=== PATIENT | female | born 1950 | race Caucasian/White ===

== ENCOUNTER 2016-08-06 14:21 | Emergency (ER) | payer MEDICARE, OTHER ==
[2016-08-06] MEDS ORDERED: KETOROLAC TROMETHAMINE 30 MG/ML VIAL IM ONE (14:43)
[2016-08-06] MEDS ORDERED: KETOROLAC TROMETHAMINE 30 MG/ML VIAL ONE (14:46)
--- OUTSIDE RECORDS SUMMARY | 2016-08-06 14:47 | XMS REPORT | Continuity of Care Document ---
:1950 Author Organization [facility] ([facility]) Address [address] [place] [address] Phone [phone] Care Team Providers Name Role Phone Moises Posey Primary Care Provider [phone] Source Comments This disclosure is being made pursuant to the Care Everywhere program, applicable federal and state laws, and may not contain all informaitonavailable regarding this patient.[facility] ([facility]) Active Allergies and Adverse Reactions Allergen Noted Date Severity Reactions Comments Latex, Natural Rubber Urticaria (Hives) Current Medications Prescription Sig. Disp. Refills Start Date End Date Status hydrochlorothiazide take 1 Tab by mouth Active (HYDRODIURIL) 25 mg daily. tablet clopidogrel (PLAVIX) 75 take 1 Tab by mouth Active mg tablet daily. simvastatin (ZOCOR) 80 take 1 Tab by mouth Active mg tablet every evening. citalopram (CELEXA) 20 take 1 Tab by mouth Active mg tablet daily. niacin 500 mg tablet take 1 Tab by mouth Active daily. Ramipril (ALTACE) 10 mg take 1 Tab by mouth Active Tab daily. metoPROLol (LOPRESSOR) take 1 Tab by mouth Active 100 mg tablet daily. nystatin (NYSTOP) powder apply 1 application 1 Bottle 0 04/17/2009 Active topically 4 times daily. Indications: Cutaneous Candidiasis HYDROCODONE take by mouth as Active BIT/ACETAMINOPHEN needed. (VICODIN PO) HYDROcodone-acetaminophe Take 1 Tab by mouth 5 Tab 0 01/28/2011 Active n 5-500 mg per tablet every 6 hours as needed. Indications: Pain fluticasone 50 use 2 Sprays into Active mcg/Actuation nasal both nostrils spray daily. ALPRAZolam 0.25 mg Take 0.25 mg by Active tablet mouth at bedtime. insulin nph (HumuLIN N) inject 35 Units Active 100 unit/mL injection subcutaneously at vial bedtime. insulin nph (HumuLIN N) inject 40 Units Active 100 unit/mL injection subcutaneously vial daily. gabapentin 300 mg Take 300 mg by Active capsule mouth 3 times daily. diphenhydrAMINE 25 mg Take 25 mg by mouth Active capsule at bedtime as needed. sennosides 8.6 mg tablet Take 2 Tabs by Active mouth at bedtime. multivitamin with Take 1 Tab by mouth Active minerals tablet daily. potassium chloride 10 Take 10 mEq by Active mEq XR tablet mouth 2 times daily. oxyCODONE-acetaminophen Take 1 Tab by mouth Active 5-325 mg per tablet every 6 hours as needed. Do Not exceed 4000 mg of acetaminophen per 24 hours. isrobmhyyg-nuhjunm-wegxe Take 1 Tab by mouth Active ine (BUTALBITAL every 8 hours as COMPOUND) 50-325-40 mg needed. Max of 6 per tablet tablet per day. Active Problems Problem Noted Date S/P TKR (total knee replacement) 02/09/2013 Knee pain, right 02/09/2013 Other disorder of menstruation and other abnormal bleeding from female 2006 genital tract Type II or unspecified type diabetes mellitus without mention of 12/17/2003 complication, not stated as uncontrolled Ingrowing nail 12/17/2003 Pain in joint, lower leg 07/29/2002 Other musculoskeletal symptoms referable to limbs(729.89) 07/08/2002 Benign neoplasm of bone and articular cartilage, site unspecified 06/21/2002 Effusion of joint, site unspecified 06/21/2002 Contusion of unspecified part of lower limb 06/21/2002 Other tenosynovitis of hand and wrist 05/20/2002 Social History Tobacco Use Types Packs/Day Years Used Date Never Smoker Alcohol Use Drinks/Week oz/Week Comments No Last Filed Vital Signs Vital Sign Reading Time Taken Blood Pressure 134/74 02/06/2013 1:36 PM CDT Pulse 80 02/06/2013 1:36 PM CDT Temperature 36.6 C (97.9 F) 02/06/2013 1:36 PM CDT Respiratory Rate 16 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 Height 1.617 m (5' 3.66") 02/06/2013 1:36 PM CDT Weight 105.461 kg (232 lb 8 oz) 02/06/2013 1:36 PM CDT Body Mass Index 40.33 02/06/2013 1:36 PM CDT Oxygen Saturation 95% 04/03/2009 11:30 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 Plan of Care Health Maintenance Due Date Last Done Comments HCV Screening 1950 Hepatitis B Vaccine (1 of 3 - Primary Series) 1950 Tdap Vaccine 1960 DIABETIC: Cholesterol 10/21/1967 Diabetic: Hdl 10/21/1967 DIABETIC: Microalbumin 10/21/1967 DIABETIC: Triglycerides 10/21/1967 Td Vaccine 10/21/1967 Mammogram 1989 Colonoscopy 1999 DIABETIC: Hemoglobin A1C 02/18/2005 08/19/2004 Diabetic: Ldl 08/19/2005 08/19/2004 Zoster Vaccine 2009 DIABETIC: Foot Exam 10/26/2010 DIABETIC: Retinal Eye Exam 10/26/2010 Osteoporosis Screening (DXA Bone Density) 2014 Pneumococcal Vaccine (1 of 2 - PCV13) 2014 Influenza Vaccine: Seasonal (#1) 12/14/2015 Results from Last 3 Months Not on file
--- NOTE | 2016-08-06 14:55 | ERNOTE ---
Lower Extremity HPI - Narrative Date of Service: 08/06/16 - General Lower Extremities Pain: foot: left Time Seen by Provider: 08/06/16 14:34 Source: patient Exam Limitations: no limitations - Immun/Allergies/Home Medications Immunizations: IMMUNIZATION HX Immunizations Up to Date Yes History of Influenza Vaccine Yes Hx Pneumococcal Vaccination Yes Allergies/Adverse Reactions: Allergies Allergy/AdvReac Type Severity Reaction Status Date / Time latex Allergy Mild Hives Verified 08/06/16 14:30 Home Medications: HOME MEDICATIONS Clopidogrel Bisulfate [Plavix] 75 mg PO DAILY 03/15/12 [Last Taken 09/17/13] Gabapentin 300 mg PO TID 03/15/12 [Last Taken 09/17/13] Hydrochlorothiazide 25 mg PO DAILY 03/15/12 [Last Taken 09/17/13] Metoprolol Tartrate 100 mg PO QPM 03/15/12 [Last Taken 09/16/13] Niacin (Inositol Niacinate) [Niacin 500 mg Capsule] 500 mg PO DAILY 03/15/12 [ Last Taken 09/17/13] Potassium Chloride [Klor-Con 10] 20 meq PO DAILY 03/15/12 [Last Taken 09/17/13] Ramipril 10 mg PO DAILY 03/15/12 [Last Taken 09/17/13] Simvastatin 80 mg PO HS 03/15/12 [Last Taken 09/16/13] Calcium Carbonate [Calcium] 1,000 mg PO DAILY 09/17/13 [Last Taken 09/17/13] Diphenhydramine HCl [Allergy Medicine] 25 mg PO HS 09/17/13 [Last Taken 09/17/13 ] Multivitamin [Multi Vitamin Daily] 1 tab PO DAILY 09/17/13 [Last Taken 09/17/13] Tolterodine Tartrate [Detrol LA] 2 mg PO DAILY 09/17/13 [Last Taken 09/17/13] Trazodone HCl 100 mg PO HS 09/17/13 [Last Taken 09/16/13] Acetaminophen [Tylenol] 650 mg PO Q4H PRN 06/03/14 [Last Taken Unknown] Blood Sugar Diagnostic, Drum [Accu-Chek Compact] 1 each MC TID 06/03/14 [Last Taken Unknown] Cetirizine HCl [Zyrtec] 10 mg PO DAILY 06/03/14 [Last Taken Unknown] Cyanocobalamin [Vitamin B-12] 1,000 mcg PO DAILY 06/03/14 [Last Taken Unknown] Insulin Aspart [Novolog Flexpen] 100 unit SQ AC 06/03/14 [Last Taken Unknown] Insulin Aspart [Novolog] 40 units SC QPM 06/03/14 [Last Taken Unknown] Insulin Aspart [Novolog] 45 units SC QAM 06/03/14 [Last Taken Unknown] Ranitidine HCl [Zantac] 150 mg PO BID 06/03/14 [Last Taken Unknown] Solifenacin Succinate [Vesicare] 10 mg PO DAILY 06/03/14 [Last Taken Unknown] Venlafaxine HCl [Effexor Xr] 150 mg PO DAILY 06/03/14 [Last Taken Unknown] metFORMIN HCL [Glucophage] 500 mg PO BIDWM 06/03/14 [Last Taken Unknown] rOPINIRole HCL [Requip] 0.5 mg PO HS 06/03/14 [Last Taken Unknown] Chlorhexidine Gluconate [Chlorhexidine Gluconate 0.12%] 15 ml MM BID 01/14/15 [ Last Taken Unknown] Cyclosporine [Restasis] 1 each OP BID 01/14/15 [Last Taken Unknown] Estrogens, Conjugated [Premarin Cream] 1 appl VG SUTH 01/14/15 [Last Taken Unknown] Sodium Fluoride [Prevident 5000] 100 ml DT BID 01/14/15 [Last Taken Unknown] - History of Present Illness Narrative: Pt. comes in with c/o L foot pain that she noticed upon awakening this morning. Pt. thought that it may be her arthritis so she walked around on it and then she noticed it was swelling, so she decided to be evaluated here. Pt. denies any injury or recent illness. Pt. denies any calf pain. Pt. denies any alleviating factors despite taking tylenol for pain. Pt. denies any SOB, CP, headache, numbness, or tingling. Review of Systems - Review of Systems Constitutional: Present: no symptoms reported. Absent: recent illness, fever, chills, weakness, fatigue, malaise EYE: Present: no symptoms reported ENT: Present: no symptoms reported Respiratory: Present: no symptoms reported. Absent: shortness of breath, cough , wheezing Cardiology: Present: edema - LLE. Absent: chest pain, palpitations Gastrointestinal/Abdominal: Present: no symptoms reported Genitourinary: Present: no symptoms reported Musculoskeletal: Present: joint pain - L volar heel. Absent: back pain Skin: Present: no symptoms reported. Absent: rash, change in color Neurological: Present: no symptoms reported. Absent: headache, dizziness/light- headedness, numbness, tingling All Other Systems: All systems neg except as marked - Patient's Past Medical History Patient History - Medical: Depression Patient History - Cardiac/Respiratory: Other Patient History - Cancer: No Hx of Cancer - Social History Smoking Status: Never smoker Have you smoked in the past 12 months: No - Immunizations Immunizations Up to Date: Yes Hx Pneumococcal Vaccination: Yes History of Influenza Vaccine: Yes Physical Exam - Physical Exam General Appearance: Present: wd/wn, alert, no apparent distress Eye Exam: Normal inspection: bilateral, PERRL: bilateral, EOMI: bilateral Ears, Nose, Throat: Present: normal ENT inspection, normal pharynx Neck: Present: normal inspection, nontender. Absent: lymphadenopathy (R), lymphadenopathy (L) Respiratory: Present: no respiratory distress, normal breath sounds, no accessory muscle use, chest nontender, lungs clear Cardiovascular/Chest: Present: regular rate, rhythm, no murmur, normal peripheral pulses Back Exam: Present: normal inspection, normal range of motion, no vertebral tenderness Extremity Exam: Present: normal range of motion, pedal edema - LLE, other - soft tissue tissue swelling and tenderness L volar heel. Absent: calf tenderness Neurological Exam: Present: alert, oriented, normal mood/affect, no motor/ sensory deficits Skin Exam: Present: normal color, warm/dry. Absent: pallor, skin rash ED Progress - Results and Orders Patient's Lab Results:: I have reviewed the patient's lab results. - Vital Signs Patient's Vital Signs:: I have reviewed the patient's vital signs. Vital Signs: Vital Signs 08/06/16 14:22 Temperature 36.9 C Pulse Rate 66 Respiratory 14 Rate Blood Pressure 161/79 O2 Sat by Pulse 98 Oximetry - X-Ray X-Ray #1 X-Ray: foot Interpretation: Interp. by me X-ray Comments: spurring noted no fracture - CT/Ultrasound CT/Ultrasound Narrative: US without evidence of DVT. - Progress/Reassessment Chief Complaint: Foot Injury/Pain Departure Clinical Impression: Heel spur Qualifiers: Laterality: left Qualified Code(s): M77.32 - Calcaneal spur, left foot - Departure Disposition: Home self-care Condition: Good Instructions: Heel Spur Additional Instructions: Please use tramadol and Voltaren gel for pain in heel and follow up with quality control scientist by calling to make appointment on Monday. Referrals: Moises Posey MD [Primary Care Provider] -
[2016-08-06 15:10] LABS: Hemoglobin 14.9 gm/dL (12.5-16.0); Mean Cell Volume 94.9 fl (78-100); Mean Corpuscular Hemoglobin 31.4 pg (27-31); Mean Corpuscular Hgb Conc 33.1 g/dl (32-36); Mean Platelet Volume 9.2 fl (6.0-9.5); Neutrophil # 7.8 K/mm3 (1.3-6.0); Neutrophil % 66.5 % (42-75.0); Platelet Count 171 K/mm3 (150-450); Red Blood Count 4.74 M/mm3 (4.2-5.4); Red Cell Distribution Width 12.2 % (11.5-14.0); White Blood Count 11.7 K/mm3 (4.0-10.5)
[2016-08-06 15:36] LABS: Albumin * 3.9 gm/dl (3.4-5.0); Anion Gap 15.3 mmol/L (6.8-13.8); BUN/Creatinine Ratio 18.3 (9.0-21.6); Bilirubin, Total 0.5 mg/dL (0.0-1.1); Ca. Corrected For Albumin 8.9 mg/dL (8.4-10.2); Calcium * 9.1 mg/dL (7.9-10.9); Carbon Dioxide 23.1 mmol/L (24-32.6); Potassium 4.4 mmol/L (3.4-4.6); Total Protein 7.8 gm/dL (6.2-8.2); Uric Acid 4.6 mg/dL (2.6-7.2)
[2016-08-06 17:04] VITALS: BP 173/77
== END 2016-08-06 17:14 | disposition home or self-care (01) ==
LOC: ER 14:21
DX: M77.32 Calcaneal spur, left foot (principal)

== ENCOUNTER 2019-02-27 14:31 | Inpatient (IN) ==
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
[2019-02-27 15:32] LABS: Hematocrit 42.9 % (37.0-47.0); Hemoglobin 14.5 gm/dL (12.5-16.0); Mean Corpuscular Hemoglobin 32.4 pg (27-31); Mean Corpuscular Hgb Conc 33.8 g/dl (32-36); Mean Platelet Volume 8.3 fl (8-12.5); Neutrophil # 13.3 K/mm3 (1.3-6.0); Neutrophil % 78.3 % (42-75.0); Platelet Count 285 K/mm3 (150-450); Red Blood Count 4.47 M/mm3 (4.2-5.4); Red Cell Distribution Width 12.5 % (11.5-14.0); White Blood Count 17.1 K/mm3 (4.0-10.5)
[2019-02-27 15:34] LABS: Urine Bilirubin 1 mg/dl (NEGATIVE); Urine Blood 25 /ul (NEGATIVE); Urine Ketone 15 mg/dL (NEGATIVE); Urine Protein Negative (NEGATIVE); Urine Urobilinogen Normal (NORMAL)
[2019-02-27 15:42] LABS: Urine Appearance Cloudy (CLEAR); Urine Color Yellow; Urine Nitrite Positive (NEGATIVE); Urine RBC TRACE /hpf (0-5)
[2019-02-27 15:43] LABS: Urine Bacteria 3+
[2019-02-27 15:47] LABS: Albumin * 3.4 gm/dl (3.4-5.0); Anion Gap 13.7 mmol/L (6.8-13.8); BUN/Creatinine Ratio 23.5 (9.0-21.6); Bilirubin, Total 0.4 mg/dL (0.0-1.1); Ca. Corrected For Albumin 9.4 mg/dL (8.4-10.2); Calcium * 9.2 mg/dL (7.9-10.9); Carbon Dioxide 24.8 mmol/L (24-32.6); Potassium 3.5 mmol/L (3.4-4.6); Total Protein 8.5 gm/dL (6.2-8.2)
[2019-02-27] MEDS ORDERED: cefTRIAXone SODIUM 1,000 MG/100 ML BAG IV ONE (16:27)
[2019-02-27] MEDS ORDERED: FLU VACC QS2019-20(6MOS UP)/PF 60 MCG/0.5 ML SYRINGE IM ONE (17:50)
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
[2019-02-27] MEDS: INSULIN LISPRO 100 UNITS/ML VIAL SC SCH (20:54)
[2019-02-27] MEDS ORDERED: DOCUSATE SODIUM 100 MG CAPSULE PO PRN (20:56)
[2019-02-27] MEDS ORDERED: BISMUTH SUBSALICYLATE PO PRN (20:56)
[2019-02-27] MEDS ORDERED: BISACODYL 10 MG SUPP.RECT RC PRN (20:56)
[2019-02-27] MEDS ORDERED: POLYETHYLENE GLYCOL 3350 119 GM BTL PO PRN (20:56)
[2019-02-27] MEDS ORDERED: CHLORHEXIDINE GLUCONATE MOUTHWASH MM SCH (21:00)
[2019-02-27] MEDS ORDERED: ESTRADIOL 42.5 APPL TUBE VG SCH (21:00)
[2019-02-27] MEDS ORDERED: TRAZODONE HCL PO SCH (22:00)
[2019-02-27] MEDS ORDERED: traZODone HCL 50 MG TABLET ONE (23:14)
[2019-02-27] MEDS: RAMIPRIL 2.5 MG CAPSULE PO SCH (23:18)
[2019-02-27] MEDS: METOPROLOL TARTRATE 25 MG TABLET PO SCH (23:19)
[2019-02-27] MEDS: GABAPENTIN 300 MG CAPSULE PO SCH (23:20)
[2019-02-27] MEDS: TOPIRAMATE 50 MG TABLET PO SCH (23:20)
[2019-02-28] MEDS ORDERED: POLYETHYLENE GLYCOL 3350 17 GM PACKET PO PRN (06:22)
[2019-02-28] MEDS: INSULIN LISPRO 100 UNITS/ML VIAL SC SCH ×4 (07:22→21:17)
[2019-02-28] MEDS: PREVIDENT dental SCH ×3 (07:30→21:24)
[2019-02-28] MEDS: rOPINIRole HCL 1 MG TABLET PO SCH ×3 (07:30→21:24)
[2019-02-28] MEDS: INSULIN NPH HUMAN ISOPHANE 100 UNITS/ML VIAL SC SCH ×2 (07:31→16:39)
[2019-02-28] MEDS: ALPRAZolam 0.5 MG TABLET PO PRN (08:22)
[2019-02-28] MEDS: MULTIVITAMIN/IRON/FOLIC ACID 1 TAB TABLET PO SCH (08:55)
[2019-02-28] MEDS: TOLTERODINE TARTRATE 2 MG CAPSULE PO SCH (08:55)
[2019-02-28] MEDS: RAMIPRIL 2.5 MG CAPSULE PO SCH ×2 (08:55→21:20)
[2019-02-28] MEDS: CALCIUM CARBONATE/VITAMIN D3 1 TAB TABLET PO SCH ×2 (08:55→21:22)
[2019-02-28] MEDS: CLOPIDOGREL BISULFATE 75 MG TABLET PO SCH (08:56)
[2019-02-28] MEDS: GABAPENTIN 300 MG CAPSULE PO SCH ×3 (08:56→16:32)
[2019-02-28] MEDS: METOPROLOL TARTRATE 25 MG TABLET PO SCH ×2 (08:56→21:23)
[2019-02-28] MEDS: TOPIRAMATE 50 MG TABLET PO SCH ×2 (08:56→21:24)
[2019-02-28] MEDS: LIDOCAINE 1 PATCH ADH..PATCH TP SCH (08:57)
[2019-02-28] MEDS ORDERED: ARIPiprazole 10 MG TABLET PO SCH (09:00)
[2019-02-28] MEDS ORDERED: amLODIPine BESYLATE 5 MG TABLET PO SCH (09:00)
[2019-02-28] MEDS: POTASSIUM CHLORIDE 10 MEQ in 0.5 NORMAL SALINE 1,000 ML IV SCH ×2 (09:47→16:31)
--- NOTE | 2019-02-28 09:57 | PN ---
Subjective - Date and Time Seen Date: 02/28/19 Time: 09:40 Subjective Narrative: patient continues to be weak, bedridden most of the time, refusing activity. she has h/o CVA with left spastic hemiparesis and recent greater trochanter avusion fracture. she is incontinent of her urine. she is complaining of N/dry heave and abdominal pain. Objective - Review of Systems Generalized/Overall Review: Reports: Weakness. Denies: Chills, Fever EENTM: Denies: Blurred Vision Respiratory: Denies: Cough, Shortness of Breath Cardiac: Denies: Chest Pain, Edema, Palpitations Abdominal: Reports: Nausea, Vomiting, Abdominal Pain Genitourinary Symptoms: Denies: Urgency, Frequency Musculoskeletal Complaints: Reports: Joint Pain, Back Pain Neurological: Reports: Anxiety, Depressed. Denies: Headache Misc: All systems neg except as marked - Vitals Vitals: Last Vital Signs Temp 37.5 C 02/28/19 07:56 Pulse 85 02/28/19 08:56 Resp 24 H 02/28/19 07:56 BP 149/88 02/28/19 08:56 Pulse Ox 97 02/28/19 07:56 - Abnormal Lab Findings Abnormal Lab Findings: Abnormal Lab Results 02/27/19 02/27/19 02/27/19 Range/Units 15:20 15:25 15:25 WBC 17.1 H (4.0-10.5) K/mm3 MCH 32.4 H (27-31) pg Immature Gran % (Auto) 0.50 H (0.001-0.429) % Immature Gran # (Auto) 0.09 H (0.000-0.0310) K/mm3 Neutrophils % 78.3 H (42-75.0) % Lymphocytes % 12.4 L (20-51) % Neutrophils # 13.3 H (1.3-6.0) K/mm3 Monocytes # 1.4 H (0.0-1.0) k/mm3 Sodium 144 H (132-142) mmol/L Plasma Sodium 144 H (130-142) mmol/L Chloride 109 H (97-106) mmol/L BUN 27 H D (3-23) mg/dL Est GFR (Non-Af Amer) 50 L D (60-130) mL/min BUN/Creatinine Ratio 23.5 H (9.0-21.6) AST 80 H (0-48) U/L ALT 98 H (19-67) U/L Total Protein 8.5 H (6.2-8.2) gm/dL Urine Blood 25 H (NEGATIVE) /ul Urine Nitrate Positive H (NEGATIVE) Urine Bilirubin 1 H (NEGATIVE) mg/dl Ur Leukocyte Esterase 100 H (NEGATIVE) /ul Urine WBC 10-25 H (0-5) /hpf Urine Bacteria 3+ H (NONE) - Exam Constitutional: Present: Alert, Oriented x3, Looks Older than stated age ENT Exam: Present: hearing grossly normal Neck: Present: full range of motion. Absent: lymphadenopathy (R), lymphadenopathy (L) Respiratory: Present: decreased breath sounds, No rales, No wheezing Cardiovascular/Chest: Present: regular rate, rhythm, no JVD, no murmur Abdomen: Present: Normal bowel sounds, soft, nondistended, tender - LLQ Extremity: Present: no calf tenderness, pedal edema Neurologic: Present: packing clerk II-XII nml as tested, facial droop, motor weakness - left hemiparesis Assessment/Plan Plan Narrative: Yuliana has been having progressive decline in her general condition as she is starting to have failure to thrive. she used to be more independent and ambulated with her walker before her fall and greater trochanteric fracure despite her left spastic hemiparesis from her CVA in the past. she has developed pressure ulcer and is icontinent of her urine. she has UTI with E. Coli and is needing IV antibiotics as she does not take her oral antibiotics , pocketing it in her mouth as per dependency case manager. i don't think she will be able to return to her [facility] prison home as it is . will get an AXR for her n/abd pain. lastg BM was 2- 3 days ago. will also likely get a urology consult in am for her urinary incontinence as her interstim could have lost its battery power got dislodged when she had her fall. - Problems/Diagnosis (1) UTI (urinary tract infection) Problem: Acute (2) Failure of outpatient treatment Problem: Acute (3) Weakness Problem: Acute (4) Trochanteric avulsion fracture of femur Problem: Acute Qualifiers: (5) CVA (cerebral vascular accident) Problem: Chronic (6) Hypercholesteremia Problem: Chronic (7) Urinary incontinence Problem: Acute Qualifiers: (8) Major depression Problem: Chronic Qualifiers:
[2019-02-28] MEDS: traMADol HCL 50 MG TABLET PO PRN ×2 (11:34→17:53)
[2019-02-28] MEDS: SIMVASTATIN 20 MG TABLET PO SCH (16:32)
[2019-02-28] MEDS: traZODone HCL 150 MG, traZODone HCL 50 MG PO SCH ×2 (21:23)
[2019-02-28] MEDS ORDERED: CYCLOBENZAPRINE HCL 10 MG TABLET PO PRN (22:00)
[2019-02-28] MEDS: ENOXAPARIN SODIUM 40 MG/0.4 ML SYRG SC SCH (23:02)
[2019-03-01] MEDS: POTASSIUM CHLORIDE 10 MEQ in 0.5 NORMAL SALINE 1,000 ML IV SCH ×2 (01:05→09:49)
[2019-03-01 06:03] LABS: Hematocrit 38.2 % (37.0-47.0); Hemoglobin 12.9 gm/dL (12.5-16.0); Mean Cell Volume 95.5 fl (78-100); Mean Corpuscular Hemoglobin 32.3 pg (27-31); Mean Corpuscular Hgb Conc 33.8 g/dl (32-36); Mean Platelet Volume 8.5 fl (8-12.5); Neutrophil # 11.6 K/mm3 (1.3-6.0); Platelet Count 215 K/mm3 (150-450); Red Cell Distribution Width 12.2 % (11.5-14.0); White Blood Count 14.7 K/mm3 (4.0-10.5)
[2019-03-01 06:08] LABS: Anion Gap 13.3 mmol/L (6.8-13.8); BUN/Creatinine Ratio 26.2 (9.0-21.6); Calcium * 8.4 mg/dL (7.9-10.9); Carbon Dioxide 20.5 mmol/L (24-32.6); Estimated Creat Clear 54.6; Potassium 3.8 mmol/L (3.4-4.6)
[2019-03-01] MEDS: INSULIN LISPRO 100 UNITS/ML VIAL SC SCH ×4 (07:08→20:20)
[2019-03-01] MEDS: INSULIN NPH HUMAN ISOPHANE 100 UNITS/ML VIAL SC SCH ×2 (07:09→17:13)
[2019-03-01] MEDS ORDERED: ARIPiprazole 10 MG TABLET PO SCH (09:00)
--- NOTE | 2019-03-01 09:28 | PN ---
Subjective - Date and Time Seen Date: 03/01/19 Time: 09:19 Subjective Narrative: patient had BM with enema. No more N/dry heaves and abdominal pain. BP has elevated in the 150-s-180's. still needing max assist with transfers. Objective - Review of Systems Generalized/Overall Review: Reports: Weakness. Denies: Chills, Fever EENTM: Denies: Blurred Vision Respiratory: Denies: Cough, Shortness of Breath, Orthopnea Cardiac: Denies: Chest Pain, Edema, Palpitations Abdominal: Denies: Nausea, Vomiting, Abdominal Pain Genitourinary Symptoms: Reports: Incontinent. Denies: Urgency, Frequency Musculoskeletal Complaints: Reports: Joint Pain, Back Pain Neurological: Denies: Headache Skin: Denies: Lesions, Rash Endocrine: Denies: Intolerance to Cold, Intolerance to Heat Misc: All systems neg except as marked - Vitals Vitals: Last Vital Signs Temp 36.8 C 03/01/19 08:56 Pulse 80 03/01/19 08:56 Resp 20 03/01/19 08:56 BP 176/81 H 03/01/19 08:56 Pulse Ox 95 03/01/19 08:56 - Abnormal Lab Findings Abnormal Lab Findings: Abnormal Lab Results 02/28/19 03/01/19 03/01/19 Range/Units 14:50 05:59 05:59 WBC 14.7 H (4.0-10.5) K/mm3 RBC 4.00 L (4.2-5.4) M/mm3 MCH 32.3 H (27-31) pg Immature Gran # (Auto) 0.05 H (0.000-0.0310) K/mm3 Neutrophils % 79.0 H (42-75.0) % Lymphocytes % 14.0 L (20-51) % Neutrophils # 11.6 H (1.3-6.0) K/mm3 pCO2 23.9 L (32.0-45.0) mmHg HCO3 17.2 L (21.0-28.0) mmol/L Total CO2 18.0 L (19.0-24.0) mmol/L Base Excess -4.4 L (-2.0-3.0) mmol/L ABG pH 7.48 H (7.35-7.45) Chloride 107 H (97-106) mmol/L Carbon Dioxide 20.5 L (24-32.6) mmol/L BUN/Creatinine Ratio 26.2 H (9.0-21.6) Random Glucose 192 H D (70-110) mg/dL - Exam Constitutional: Present: Alert, Oriented x3, Cooperative ENT Exam: Present: hearing grossly normal Neck: Present: supple. Absent: lymphadenopathy (R), lymphadenopathy (L) Respiratory: Present: decreased breath sounds, No rales, No wheezing Cardiovascular/Chest: Present: regular rate, rhythm, no JVD, no murmur Abdomen: Present: Normal bowel sounds, soft, nontender, nondistended Extremity: Present: no calf tenderness, pedal edema Assessment/Plan Plan Narrative: Yuliana continues to need maximal assist for transfers. She says pain is better controlled. She had a bowel movement yesterday and her nausea, dry heaves and abdominal pain resolved. She remains incontinent of her urine. We will try to get consult or talk to urology today for recommendation on her InterStim. Her white blood cell count went down from 17 to 14 with IV Rocephin. She grew E. coli last week. Her repeat urine culture on this admission is still showing gram-negative bacilli reflecting that she failed outpatient treatment first due to antibiotic that was resistant and then with the correct antibiotic the patient was not compliant pocketing her antibiotics in her mouth as per shelter case manager of [facility]. She also is choking on her food and we will change it to mechanical soft diet. PT/ OT has been consulted. Her ABG showed respiratory alkalosis likely due to anxiety as her tachypnea got better with a sedative as well as pain medicine. We will increase her amlodipine to 10 mg p.o. daily today continue with her ramipril 10 mg twice daily. Will need NH placement. - Problems/Diagnosis (1) UTI (urinary tract infection) Problem: Acute (2) Failure of outpatient treatment Problem: Acute (3) Weakness Problem: Acute (4) Trochanteric avulsion fracture of femur Problem: Acute Qualifiers: (5) CVA (cerebral vascular accident) Problem: Chronic (6) Hypercholesteremia Problem: Chronic (7) Urinary incontinence Problem: Acute Qualifiers: (8) Major depression Problem: Chronic Qualifiers:
[2019-03-01] MEDS: ARIPiprazole 5 MG TABLET PO SCH (10:05)
[2019-03-01] MEDS: RAMIPRIL 2.5 MG CAPSULE PO SCH ×2 (10:05→20:10)
[2019-03-01] MEDS: CALCIUM CARBONATE/VITAMIN D3 1 TAB TABLET PO SCH ×2 (10:07→20:10)
[2019-03-01] MEDS: MULTIVITAMIN/IRON/FOLIC ACID 1 TAB TABLET PO SCH (10:07)
[2019-03-01] MEDS: TOLTERODINE TARTRATE 2 MG CAPSULE PO SCH (10:07)
[2019-03-01] MEDS: LIDOCAINE 1 PATCH ADH..PATCH TP SCH (10:08)
[2019-03-01] MEDS: METOPROLOL TARTRATE 25 MG TABLET PO SCH ×2 (10:09→20:14)
[2019-03-01] MEDS: GABAPENTIN 300 MG CAPSULE PO SCH ×3 (10:10→17:04)
[2019-03-01] MEDS: amLODIPine BESYLATE 10 MG TABLET PO SCH (10:11)
[2019-03-01] MEDS: CLOPIDOGREL BISULFATE 75 MG TABLET PO SCH (10:11)
[2019-03-01] MEDS: rOPINIRole HCL 1 MG TABLET PO SCH ×2 (10:11→20:12)
[2019-03-01] MEDS: PREVIDENT dental SCH ×2 (10:11→20:15)
[2019-03-01] MEDS: TOPIRAMATE 50 MG TABLET PO SCH ×2 (10:12→20:16)
[2019-03-01] MEDS: FLUTICASONE PROPIONATE 120 SPRAY INHALER NS SCH (11:45)
[2019-03-01] MEDS: ACETAMINOPHEN 325 MG TABLET PO PRN (15:23)
[2019-03-01] MEDS: SIMVASTATIN 20 MG TABLET PO SCH (17:04)
[2019-03-01] MEDS: traZODone HCL 150 MG, traZODone HCL 50 MG PO SCH ×2 (20:13)
[2019-03-01] MEDS: ENOXAPARIN SODIUM 40 MG/0.4 ML SYRG SC SCH (20:15)
[2019-03-02 06:20] LABS: Hematocrit 39.8 % (37.0-47.0); Hemoglobin 13.6 gm/dL (12.5-16.0); Mean Cell Volume 94.8 fl (78-100); Mean Corpuscular Hemoglobin 32.4 pg (27-31); Mean Corpuscular Hgb Conc 34.2 g/dl (32-36); Mean Platelet Volume 8.8 fl (8-12.5); Neutrophil # 9.1 K/mm3 (1.3-6.0); Neutrophil % 79.4 % (42-75.0); Platelet Count 230 K/mm3 (150-450); Red Cell Distribution Width 12.1 % (11.5-14.0); White Blood Count 11.5 K/mm3 (4.0-10.5)
[2019-03-02 06:45] LABS: Albumin * 2.9 gm/dl (3.4-5.0); Anion Gap 15.4 mmol/L (6.8-13.8); BUN/Creatinine Ratio 20.8 (9.0-21.6); Bilirubin, Total 0.5 mg/dL (0.0-1.1); Ca. Corrected For Albumin 9.2 mg/dL (8.4-10.2); Calcium * 8.6 mg/dL (7.9-10.9); Carbon Dioxide 21.2 mmol/L (24-32.6); Potassium 3.6 mmol/L (3.4-4.6); Total Protein 7.3 gm/dL (6.2-8.2)
[2019-03-02] MEDS: ACETAMINOPHEN 325 MG TABLET PO PRN (06:48)
[2019-03-02] MEDS: INSULIN NPH HUMAN ISOPHANE 100 UNITS/ML VIAL SC SCH ×2 (07:05→16:28)
[2019-03-02] MEDS: INSULIN LISPRO 100 UNITS/ML VIAL SC SCH ×4 (07:05→20:58)
[2019-03-02] MEDS: TOPIRAMATE 50 MG TABLET PO SCH ×2 (08:57→20:54)
[2019-03-02] MEDS: FLUTICASONE PROPIONATE 120 SPRAY INHALER NS SCH (08:57)
[2019-03-02] MEDS: amLODIPine BESYLATE 10 MG TABLET PO SCH (08:57)
[2019-03-02] MEDS: MULTIVITAMIN/IRON/FOLIC ACID 1 TAB TABLET PO SCH (08:57)
[2019-03-02] MEDS: LIDOCAINE 1 PATCH ADH..PATCH TP SCH (08:57)
[2019-03-02] MEDS: GABAPENTIN 300 MG CAPSULE PO SCH ×3 (08:57→16:17)
[2019-03-02] MEDS: CLOPIDOGREL BISULFATE 75 MG TABLET PO SCH (08:58)
[2019-03-02] MEDS: TOLTERODINE TARTRATE 2 MG CAPSULE PO SCH (08:58)
[2019-03-02] MEDS: CALCIUM CARBONATE/VITAMIN D3 1 TAB TABLET PO SCH ×2 (08:58→20:56)
[2019-03-02] MEDS: rOPINIRole HCL 1 MG TABLET PO SCH ×2 (08:58→20:53)
[2019-03-02] MEDS: PREVIDENT dental SCH ×2 (08:59→20:56)
[2019-03-02] MEDS: RAMIPRIL 2.5 MG CAPSULE PO SCH ×2 (08:59→20:54)
[2019-03-02] MEDS: METOPROLOL TARTRATE 25 MG TABLET PO SCH ×2 (08:59→20:54)
[2019-03-02] MEDS: ARIPiprazole 5 MG TABLET PO SCH (09:07)
[2019-03-02] MEDS: HYDROCHLOROTHIAZIDE 25 MG TABLET PO SCH (11:43)
--- NOTE | 2019-03-02 15:55 | PN ---
Subjective - Date and Time Seen Date: 03/02/19 Time: 10:33 Subjective Narrative: She denies urinary frequency or pain with urination. She is alert and oriented x1 to person only. Objective - Review of Systems Generalized/Overall Review: Denies: Fever Respiratory: Denies: Shortness of Breath Cardiac: Denies: Chest Pain Abdominal: Denies: Abdominal Pain Genitourinary Symptoms: Denies: Frequency, Dysuria Misc: All systems neg except as marked - Vitals Vitals: Last Vital Signs Temp 37.3 C 03/02/19 15:16 Pulse 90 03/02/19 15:16 Resp 18 03/02/19 15:16 BP 175/91 H 03/02/19 15:16 Pulse Ox 97 03/02/19 15:16 - Abnormal Lab Findings Abnormal Lab Findings: Abnormal Lab Results 03/02/19 03/02/19 Range/Units 05:50 05:50 WBC 11.5 H D (4.0-10.5) K/mm3 MCH 32.4 H (27-31) pg Immature Gran % (Auto) 0.50 H (0.001-0.429) % Immature Gran # (Auto) 0.06 H (0.000-0.0310) K/mm3 Neutrophils % 79.4 H (42-75.0) % Lymphocytes % 13.0 L (20-51) % Neutrophils # 9.1 H (1.3-6.0) K/mm3 Carbon Dioxide 21.2 L (24-32.6) mmol/L Anion Gap 15.4 H (6.8-13.8) mmol/L Random Glucose 228 H (70-110) mg/dL AST 92 H (0-48) U/L ALT 121 H (19-67) U/L Albumin 2.9 L (3.4-5.0) gm/dl - Exam Constitutional: Present: Alert, Cooperative, Well developed, Well nourished, No distress, Elderly. Absent: Oriented x3 ENT Exam: Present: hearing grossly normal Neck: Present: non-tender, supple, trachea midline. Absent: lymphadenopathy (R), lymphadenopathy (L) Respiratory: Present: lungs clear, normal breath sounds, no respiratory distress, no accessory muscle use, No wheezing. Absent: crackles, rhonchi Cardiovascular/Chest: Present: normal peripheral pulses, regular rate, rhythm, no edema, no murmur Abdomen: Present: Normal bowel sounds, soft, nontender, nondistended Extremity: Present: no pedal edema Skin Exam: Present: normal color, warm/dry Neurologic: Present: alert, normal mood/affect Appearance: Present: appropriate appearance, appropriate insight Eye contact: Present: cooperative Thoughts: Present: normal mood /affect Assessment/Plan Plan Narrative: 68-year-old female with a past medical history of hypertension, hypercholesterolemia, insomnia, migraines, seizure disorder, stroke with left hemiparesis, VTE, depression, diabetes mellitus type 2, GERD presents with progressively worsening failure to thrive. On presentation prior to admission she had been treated for a urinary tract infection with Macrobid. On presentation to the ER her urine analysis was positive. UA is currently growing E. coli greater than 100,000 colony-forming units that is sensitive to ceftriaxone. Plan #1 continue with ceftriaxone day 4 #2 she is not able to ambulate and is a Hernandez lift. She will need to be discharged to a detention facility rather than back to [facility]. #3 continue home medications for chronic comorbidities. For uncontrolled hypertension, I started hydrochlorothiazide today. Amlodipine and ramipril. She has spaced to go up on her beta-merline but I will hold off for now. Start hydralazine 10 mg 4 times daily. - Problems/Diagnosis (1) Hypertension Problem: Acute Qualifiers: Hypertension type: essential hypertension Qualified Code(s): I10 - Essential (primary) hypertension (2) Failure of outpatient treatment Problem: Acute (3) Weakness Problem: Acute (4) Trochanteric avulsion fracture of femur Problem: Acute Qualifiers: (5) UTI (urinary tract infection), bacterial Problem: Acute (6) Diabetes mellitus Problem: Chronic Qualifiers: Diabetes mellitus type: type 2 Diabetes mellitus shelter insulin use: without termite treater helper use Diabetes mellitus complication status: without complication Qualified Code(s): E11.9 - Type 2 diabetes mellitus without co mplications (7) CVA (cerebral vascular accident) Problem: Chronic (8) Hypercholesteremia Problem: Chronic (9) 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
[2019-03-02] MEDS: hydrALAZINE HCL 10 MG TABLET PO SCH ×2 (16:16→21:02)
[2019-03-02] MEDS: SIMVASTATIN 20 MG TABLET PO SCH (16:18)
[2019-03-02] MEDS: ENOXAPARIN SODIUM 40 MG/0.4 ML SYRG SC SCH (20:54)
[2019-03-02] MEDS: traZODone HCL 150 MG, traZODone HCL 50 MG PO SCH ×2 (20:55)
[2019-03-03] MEDS: hydrALAZINE HCL 10 MG TABLET PO SCH ×4 (03:28→23:02)
[2019-03-03] MEDS: INSULIN LISPRO 100 UNITS/ML VIAL SC SCH ×4 (07:13→21:25)
[2019-03-03] MEDS: INSULIN NPH HUMAN ISOPHANE 100 UNITS/ML VIAL SC SCH ×2 (07:14→17:02)
[2019-03-03] MEDS: CALCIUM CARBONATE/VITAMIN D3 1 TAB TABLET PO SCH ×2 (09:41→21:26)
[2019-03-03] MEDS: METOPROLOL TARTRATE 25 MG TABLET PO SCH ×2 (09:41→21:27)
[2019-03-03] MEDS: FLUTICASONE PROPIONATE 120 SPRAY INHALER NS SCH (09:41)
[2019-03-03] MEDS: TOLTERODINE TARTRATE 2 MG CAPSULE PO SCH (09:41)
[2019-03-03] MEDS: RAMIPRIL 2.5 MG CAPSULE PO SCH ×2 (09:41→21:26)
[2019-03-03] MEDS: amLODIPine BESYLATE 10 MG TABLET PO SCH (09:41)
[2019-03-03] MEDS: rOPINIRole HCL 1 MG TABLET PO SCH ×2 (09:41→21:27)
[2019-03-03] MEDS: MULTIVITAMIN/IRON/FOLIC ACID 1 TAB TABLET PO SCH (09:42)
[2019-03-03] MEDS: TOPIRAMATE 50 MG TABLET PO SCH ×2 (09:42→21:28)
[2019-03-03] MEDS: CLOPIDOGREL BISULFATE 75 MG TABLET PO SCH (09:43)
[2019-03-03] MEDS: GABAPENTIN 300 MG CAPSULE PO SCH ×3 (09:43→16:56)
[2019-03-03] MEDS: ARIPiprazole 5 MG TABLET PO SCH (09:43)
[2019-03-03] MEDS: PREVIDENT dental SCH ×2 (09:44→21:29)
[2019-03-03] MEDS: LIDOCAINE 1 PATCH ADH..PATCH TP SCH (09:44)
[2019-03-03] MEDS: HYDROCHLOROTHIAZIDE 25 MG TABLET PO SCH (11:40)
[2019-03-03] MEDS: ALPRAZolam 0.5 MG TABLET PO PRN (11:40)
--- NOTE | 2019-03-03 12:21 | PN ---
Subjective - Date and Time Seen Date: 03/03/19 Time: 10:47 Subjective Narrative: She has no complaints today. Denies urinary frequency or pain with urination. Objective - Review of Systems Generalized/Overall Review: Denies: Fever Respiratory: Denies: Shortness of Breath Cardiac: Denies: Chest Pain Abdominal: Denies: Abdominal Pain Misc: All systems neg except as marked - Vitals Vitals: Last Vital Signs Temp 36.9 C 03/03/19 10:59 Pulse 75 03/03/19 10:59 Resp 18 03/03/19 10:59 BP 150/72 H 03/03/19 10:59 Pulse Ox 96 03/03/19 10:59 - Exam Constitutional: Present: Alert, Cooperative, Well developed, Well nourished, No distress, Middle aged ENT Exam: Present: hearing grossly normal Neck: Present: non-tender, supple. Absent: lymphadenopathy (R), lymphadenopathy (L) Respiratory: Present: lungs clear, no respiratory distress, no accessory muscle use, No wheezing. Absent: crackles, rhonchi Cardiovascular/Chest: Present: normal peripheral pulses, regular rate, rhythm, no edema, no murmur Abdomen: Present: Normal bowel sounds, soft, nontender Extremity: Present: no pedal edema Skin Exam: Present: normal color, warm/dry Neurologic: Present: alert, normal mood/affect Appearance: Present: appropriate appearance, impaired insight Eye contact: Present: cooperative Thoughts: Present: normal mood /affect Assessment/Plan Plan Narrative: 68-year-old female with a past medical history of hypertension, hypercholesterolemia, insomnia, migraines, seizure disorder, stroke with left hemiparesis, VTE, depression, diabetes mellitus type 2, GERD presents with progressively worsening failure to thrive. On presentation prior to admission she had been treated for a urinary tract infection with Macrobid. On presentation to the ER her urine analysis was positive. UA is currently growing E. coli greater than 100,000 colony-forming units that is sensitive to ceftria xone. Plan #1 continue with ceftriaxone day 5 #2 she is not able to ambulate and is a Hernandez lift. She will need to be discharged to a halfway facility rather than back to [facility]. #3 continue home medications for chronic comorbidities. #4 for uncontrolled hypertension, I started hydrochlorothiazide 25 milligrams daily, and hydrochlorothiazide 10 mg 4 times a day yesterday with good response. Systolic pressures have dropped from the 170s to the 150. Continue with amlodipine, ramipril, hydrochlorothiazide and hydralazine. - Problems/Diagnosis (1) Hypertension Problem: Acute Qualifiers: Hypertension type: essential hypertension Qualified Code(s): I10 - Regina gtzl (primary) hypertension (2) Failure of outpatient treatment Problem: Acute (3) Weakness Problem: Acute (4) Trochanteric avulsion fracture of femur Problem: Acute Qualifiers: (5) UTI (urinary tract infection), bacterial Problem: Acute (6) Diabetes mellitus Problem: Chronic Qualifiers: Diabetes mellitus type: type 2 Diabetes mellitus emt intermediate insulin use: without emt intermediate use Diabetes mellitus complication status: without complication Qualified Code(s): E11.9 - Type 2 diabetes mellitus without complications (7) CVA (cerebral vascular accident) Problem: Chronic (8) Hypercholesteremia Problem: Chronic (9) 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
[2019-03-03] MEDS: SIMVASTATIN 20 MG TABLET PO SCH (16:57)
[2019-03-03] MEDS: ENOXAPARIN SODIUM 40 MG/0.4 ML SYRG SC SCH (21:25)
[2019-03-03] MEDS: traZODone HCL 150 MG, traZODone HCL 50 MG PO SCH ×2 (21:28)
[2019-03-04] MEDS: hydrALAZINE HCL 10 MG TABLET PO SCH ×4 (03:32→22:04)
[2019-03-04 05:42] LABS: Hematocrit 39.4 % (37.0-47.0); Hemoglobin 13.6 gm/dL (12.5-16.0); Mean Cell Volume 92.9 fl (78-100); Mean Corpuscular Hemoglobin 32.1 pg (27-31); Mean Corpuscular Hgb Conc 34.5 g/dl (32-36); Mean Platelet Volume 8.9 fl (8-12.5); Neutrophil # 8.7 K/mm3 (1.3-6.0); Neutrophil % 77.7 % (42-75.0); Platelet Count 248 K/mm3 (150-450); Red Blood Count 4.24 M/mm3 (4.2-5.4); Red Cell Distribution Width 12.3 % (11.5-14.0); White Blood Count 11.1 K/mm3 (4.0-10.5)
[2019-03-04 05:59] LABS: Albumin * 2.7 gm/dl (3.4-5.0); Bilirubin, Total 0.4 mg/dL (0.0-1.1); Ca. Corrected For Albumin 9.5 mg/dL (8.4-10.2); Calcium * 8.8 mg/dL (7.9-10.9); Carbon Dioxide 23.3 mmol/L (24-32.6); Potassium 3.3 mmol/L (3.4-4.6); Total Protein 6.9 gm/dL (6.2-8.2)
[2019-03-04] MEDS: INSULIN LISPRO 100 UNITS/ML VIAL SC SCH ×4 (07:33→22:07)
[2019-03-04] MEDS: INSULIN NPH HUMAN ISOPHANE 100 UNITS/ML VIAL SC SCH ×2 (07:33→17:11)
--- NOTE | 2019-03-04 08:25 | PN ---
Power Note - Interim Date: 03/04/19 Time: 08:20 Narrative: 03/04/19 08:22 Patient says her hip pain is 0 when she is sitting in the recliner, when she puts weight on it it goes to 5/10. discussed with the nurse of Dr. Beckwith last Monday who was in the room doing a procedure- they have the Interstim agent interrogate the bladder pacer. No immediate intervention at this time until her UTI is resolved. Awaiting NH placement.
[2019-03-04] MEDS: ARIPiprazole 5 MG TABLET PO SCH (08:37)
[2019-03-04] MEDS: RAMIPRIL 2.5 MG CAPSULE PO SCH ×2 (08:38→21:58)
[2019-03-04] MEDS: CALCIUM CARBONATE/VITAMIN D3 1 TAB TABLET PO SCH ×2 (08:38→21:59)
[2019-03-04] MEDS: TOLTERODINE TARTRATE 2 MG CAPSULE PO SCH (08:38)
[2019-03-04] MEDS: GABAPENTIN 300 MG CAPSULE PO SCH ×3 (08:39→17:10)
[2019-03-04] MEDS: METOPROLOL TARTRATE 25 MG TABLET PO SCH ×2 (08:39→22:02)
[2019-03-04] MEDS: FLUTICASONE PROPIONATE 120 SPRAY INHALER NS SCH (08:39)
[2019-03-04] MEDS: LIDOCAINE 1 PATCH ADH..PATCH TP SCH (08:39)
[2019-03-04] MEDS: amLODIPine BESYLATE 10 MG TABLET PO SCH (08:39)
[2019-03-04] MEDS: CLOPIDOGREL BISULFATE 75 MG TABLET PO SCH (08:40)
[2019-03-04] MEDS: TOPIRAMATE 50 MG TABLET PO SCH ×2 (08:40→22:04)
[2019-03-04] MEDS: PREVIDENT dental SCH ×2 (08:40→22:03)
[2019-03-04] MEDS: rOPINIRole HCL 1 MG TABLET PO SCH ×2 (08:40→22:03)
[2019-03-04] MEDS: MULTIVIT-MIN/FA/LYCOPEN/LUTEIN 1 TAB TABLET PO SCH (08:49)
[2019-03-04] MEDS ORDERED: POTASSIUM CHLORIDE 10 MEQ TABLET.SA PO ONE (10:07)
[2019-03-04] MEDS: HYDROCHLOROTHIAZIDE 25 MG TABLET PO SCH (10:17)
[2019-03-04] MEDS: SIMVASTATIN 20 MG TABLET PO SCH (17:10)
--- NOTE | 2019-03-04 19:44 | PN ---
Subjective - Date and Time Seen Date: 03/04/19 Time: 19:39 Subjective Narrative: Yuliana says her hip pain is 0 when she is sitting in the recliner, when she puts weight on it it goes to 5/10. discussed with the nurse of Dr. Beckwith last Monday who was in the room doing a procedure- they have the Interstim agent interrogate the bladder pacer. No immediate intervention at this time until her UTI is resolved. Awaiting NH placement. Objective - Review of Systems Generalized/Overall Review: Reports: Weakness. Denies: Chills, Fever EENTM: Denies: Blurred Vision Respiratory: Denies: Cough, Shortness of Breath, Orthopnea Cardiac: Denies: Chest Pain, Edema, Palpitations Abdominal: Denies: Nausea, Vomiting, Abdominal Pain Genitourinary Symptoms: Denies: Urgency, Frequency Musculoskeletal Complaints: Reports: Joint Pain, Back Pain Neurological: Reports: Anxiety. Denies: Headache Skin: Denies: Lesions, Rash Endocrine: Denies: Intolerance to Cold, Intolerance to Heat Misc: All systems neg except as marked - Vitals Vitals: Last Vital Signs Temp 37.1 C 03/04/19 19:16 Pulse 101 H 03/04/19 19:16 Resp 24 H 03/04/19 19:16 BP 153/92 H 03/04/19 19:16 Pulse Ox 93 03/04/19 19:16 - Abnormal Lab Findings Abnormal Lab Findings: Abnormal Lab Results 03/04/19 03/04/19 Range/Units 05:15 05:15 WBC 11.1 H (4.0-10.5) K/mm3 MCH 32.1 H (27-31) pg Immature Gran # (Auto) 0.05 H (0.000-0.0310) K/mm3 Neutrophils % 77.7 H (42-75.0) % Lymphocytes % 14.3 L (20-51) % Neutrophils # 8.7 H (1.3-6.0) K/mm3 Potassium 3.3 L (3.4-4.6) mmol/L Carbon Dioxide 23.3 L (24-32.6) mmol/L Anion Gap 14.0 H (6.8-13.8) mmol/L Est GFR (Non-Af Amer) 58 L D (60-130) mL/min Random Glucose 343 H D (70-110) mg/dL ALT 89 H (19-67) U/L Albumin 2.7 L (3.4-5.0) gm/dl - Exam Constitutional: Present: Alert, Oriented x3, Cooperative ENT Exam: Present: hearing grossly normal Neck: Present: supple. Absent: lymphadenopathy (R), lymphadenopathy (L) Respiratory: Present: decreased breath sounds, No rales, No wheezing Cardiovascular/Chest: Present: regular rate, rhythm, no JVD, no murmur Abdomen: Present: Normal bowel sounds, soft, nontender, nondistended Extremity: Present: no calf tenderness, pedal edema, other - left spastic hemiparesis Assessment/Plan Plan Narrative: We will continue with current medcations and present management. She was started on HCTZ and Hydralazine for her BP over the weekend. Will give her Klor Con today. Her WBC is down to 11. Awaiting NH placement. - Problems/Diagnosis (1) UTI (urinary tract infection) Problem: Acute Narrative: E. coli (2) Failure of outpatient treatment Problem: Acute (3) Weakness Problem: Acute (4) Trochanteric avulsion fracture of femur Problem: Acute Qualifiers: (5) CVA (cerebral vascular accident) Problem: Chronic (6) Hypercholesteremia Problem: Chronic (7) Urinary incontinence Problem: Acute Qualifiers: (8) Major depression Problem: Chronic Qualifiers:
[2019-03-04] MEDS: traZODone HCL 150 MG, traZODone HCL 50 MG PO SCH ×2 (22:00)
[2019-03-04] MEDS: ENOXAPARIN SODIUM 40 MG/0.4 ML SYRG SC SCH (22:02)
[2019-03-05] MEDS: hydrALAZINE HCL 10 MG TABLET PO SCH ×2 (04:10→08:59)
[2019-03-05] MEDS: ACETAMINOPHEN 325 MG TABLET PO PRN (07:02)
[2019-03-05] MEDS: INSULIN LISPRO 100 UNITS/ML VIAL SC SCH (07:04)
[2019-03-05] MEDS: INSULIN NPH HUMAN ISOPHANE 100 UNITS/ML VIAL SC SCH (07:04)
[2019-03-05] MEDS: ARIPiprazole 5 MG TABLET PO SCH (08:45)
[2019-03-05] MEDS: TOLTERODINE TARTRATE 2 MG CAPSULE PO SCH (08:46)
[2019-03-05] MEDS: RAMIPRIL 2.5 MG CAPSULE PO SCH (08:46)
[2019-03-05] MEDS: FLUTICASONE PROPIONATE 120 SPRAY INHALER NS SCH (08:46)
[2019-03-05] MEDS: CALCIUM CARBONATE/VITAMIN D3 1 TAB TABLET PO SCH (08:46)
[2019-03-05] MEDS: MULTIVIT-MIN/FA/LYCOPEN/LUTEIN 1 TAB TABLET PO SCH (08:46)
[2019-03-05] MEDS: CLOPIDOGREL BISULFATE 75 MG TABLET PO SCH (08:47)
[2019-03-05] MEDS: rOPINIRole HCL 1 MG TABLET PO SCH (08:47)
[2019-03-05] MEDS: amLODIPine BESYLATE 10 MG TABLET PO SCH (08:47)
[2019-03-05] MEDS: LIDOCAINE 1 PATCH ADH..PATCH TP SCH (08:47)
[2019-03-05] MEDS: PREVIDENT dental SCH (08:47)
[2019-03-05] MEDS: METOPROLOL TARTRATE 25 MG TABLET PO SCH (08:47)
[2019-03-05] MEDS: TOPIRAMATE 50 MG TABLET PO SCH (08:47)
[2019-03-05] MEDS: GABAPENTIN 300 MG CAPSULE PO SCH (08:47)
--- NOTE | 2019-03-05 09:08 | DS ---
(1) UTI (urinary tract infection) Diagnosis(s): E.Coli Problem: Acute (2) Failure of outpatient treatment Problem: Acute (3) Weakness Problem: Acute (4) Trochanteric avulsion fracture of femur Problem: Acute Qualifiers: (5) CVA (cerebral vascular accident) Problem: Chronic (6) Hypercholesteremia Problem: Chronic (7) Urinary incontinence Problem: Acute Qualifiers: (8) Major depression Problem: Chronic Qualifiers: Date of Discharge:: 03/05/19 Description of Stay: Yuliana Arellano is a 68-year-old white female, resident of [facility], with past medical history of CVA with spastic left hemiparesis, hypertension, diabetes mellitus, anxiety depression, seizure disorder, who was admitted on 02/27/2019 because of progressive decrease in general condition. 13 days prior to admission the patient while getting out of her room with her walker and making an acute left turn lost her balance and fell on her right side. She was brought to the emergency room where she was found to have a fracture of her greater trochanter, right hip . She was seen by orthopedics and she was treated conservatively with weightbearing toe-touch. She had not been very active since then needing the assist of 2 people to move around. 4 days prior to admission the patient also had urinary tract infection. And was started on Bactrim. Her culture grew E. coli which was resistant and so she was changed to Macrobid. 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 As per continuous improvement consultant she sometimes gets confused, pocketing her oral antibiotics and medications in her mouth, needing 2 person assist to transfer her from bed to wheelchair. She developed a pressure sore on her coccyx. Our office earlier had recommended her to be sent to a alf for PT/OT and recommended an indwelling Paulino catheter and the [facility] personnel were trying to get papers from her guardian. She was admitted for observation and then transferred to [facility]. PT/OT has been working on her. Her BP got elevated and additional BP medications were added. Her repeat UCS grew E.Coli sensitive to the IV Rocephin she had been receiving. Her WBC count went down to 11 from 17 on admission. Idiscussed case with [employer] about her urinary incontnence and her Interstim. She willnned it to be interrogated by a victoria epresentative when she is more stable. She is stable to be discharged to [place] . Procedures Performed: none Results and Findings: Lab Pending Results 02/27/19 15:20: Urine Color Yellow, Urine Appearance Cloudy, Urine pH 6.0, Ur Specific [place] 1.020, Urine Protein Negative, Urine Glucose (UA) Negative, Urine Ketones 15, Urine Blood 25 H, Urine Nitrate Positive H, Urine Bilirubin 1 H, Urine Ictotest Negative, Urine Urobilinogen Normal, Ur Leukocyte Esterase 100 H, Urine RBC Trace, Urine WBC 10-25 H, Ur Epithelial Cells 0-5, Urine Bacteria 3+ H, Urine Culture Comments Culture to follow 02/27/19 15:25: WBC 17.1 H, RBC 4.47, Hgb 14.5, Hct 42.9, MCV 96.0, MCH 32.4 H, MCHC 33.8, RDW 12.5, Plt Count 285, MPV 8.3, Immature Gran % (Auto) 0.50 H, Immature Gran # (Auto) 0.09 H, Neutrophils % 78.3 H, Lymphocytes % 12.4 L, Monocytes % 7.9, Eosinophils % 0.5, Basophils % 0.4, Nucleated RBC % 0.0, Ne utrophils # 13.3 H, Lymphocytes # 2.12, Monocytes # 1.4 H, Eosinophils # 0.1, Absolute Basophils 0.1 02/27/19 15:25: Sodium 144 H, Plasma Sodium 144 H, Potassium 3.5, Chloride 109 H, Carbon Dioxide 24.8, Anion Gap 13.7, BUN 27 H D, Creatinine 1.15, Est GFR (Non-Af Amer) 50 L D, BUN/Creatinine Ratio 23.5 H, Random Glucose 103, Calcium 9.2, Calcium Adj for Albumin 9.4, Total Bilirubin 0.4, AST 80 H, ALT 98 H, Alkaline Phosphatase 144, Total Protein 8.5 H, Albumin 3.4 02/27/19 15:25: Lactic Acid, Venous 1.5 02/28/19 14:50: pCO2 23.9 L, pO2 93.0, HCO3 17.2 L, Total CO2 18.0 L, Base Excess -4.4 L, ABG pH 7.48 H, ABG O2 Sat (Measured) 97.7 03/01/19 05:59: WBC 14.7 H, RBC 4.00 L, Hgb 12.9, Hct 38.2, MCV 95.5, MCH 32.3 H, MCHC 33.8, RDW 12.2, Plt Count 215, MPV 8.5, Immature Gran % (Auto) 0.30, Immature Gran # (Auto) 0.05 H, Neutrophils % 79.0 H, Lymphocytes % 14.0 L, Monocytes % 6.0, Eosinophils % 0.5, Basophils % 0.2, Nucleated RBC % 0.0, Neutrophils # 11.6 H, Lymphocytes # 2.05, Monocytes # 0.9, Eosinophils # 0.1, Absolute Basophils 0.0 03/01/19 05:59: Sodium 137, Plasma Sodium 138, Potassium 3.8, Chloride 107 H, Carbon Dioxide 20.5 L, Anion Gap 13.3, BUN 22, Creatinine 0.84, Est GFR (Non-Af Amer) 71 D, BUN/Creatinine Ratio 26.2 H, Random Glucose 192 H D, Calcium 8.4 03/02/19 05:50: WBC 11.5 H D, RBC 4.20, Hgb 13.6, Hct 39.8, MCV 94.8, MCH 32.4 H, MCHC 34.2, RDW 12.1, Plt Count 230, MPV 8.8, Immature Gran % (Auto) 0.50 H, Immature Gran # (Auto) 0.06 H, Neutrophils % 79.4 H, Lymphocytes % 13.0 L, Monocytes % 5.5, Eosinophils % 1.2, Basophils % 0.4, Nucleated RBC % 0.0, Neutrophils # 9.1 H, Lymphocytes # 1.50, Monocytes # 0.6, Eosinophils # 0.1, Absolute Basophils 0.1 03/02/19 05:50: Sodium 138, Plasma Sodium 140, Potassium 3.6, Chloride 105, Carbon Dioxide 21.2 L, Anion Gap 15.4 H, BUN 15, Creatinine 0.72, Est GFR (Non- Af Amer) 85, BUN/Creatinine Ratio 20.8, Random Glucose 228 H, Calcium 8.6, Calcium Adj for Albumin 9.2, Total Bilirubin 0.5, AST 92 H, ALT 121 H, Alkaline Phosphatase 129, Total Protein 7.3, Albumin 2.9 L 03/04/19 05:15: WBC 11.1 H, RBC 4.24, Hgb 13.6, Hct 39.4, MCV 92.9, MCH 32.1 H, MCHC 34.5, RDW 12.3, Plt Count 248, MPV 8.9, Immature Gran % (Auto) 0.40, Immature Gran # (Auto) 0.05 H, Neutrophils % 77.7 H, Lymphocytes % 14.3 L, Monocytes % 6.9, Eosinophils % 0.4, Basophils % 0.3, Nucleated RBC % 0.0, Neutrophils # 8.7 H, Lymphocytes # 1.59, Monocytes # 0.8, Eosinophils # 0.1, Absolute Basophils 0.0 03/04/19 05:15: Sodium 134, Plasma Sodium 138, Potassium 3.3 L, Chloride 100, Carbon Dioxide 23.3 L, Anion Gap 14.0 H, BUN 21, Creatinine 1.00, Est GFR (Non- Af Amer) 58 L D, BUN/Creatinine Ratio 21.0, Random Glucose 343 H D, Calcium 8.8, Calcium Adj for Albumin 9.5, Total Bilirubin 0.4, AST 44, ALT 89 H, Alkaline Phosphatase 125, Total Protein 6.9, Albumin 2.7 L Discharge Location: [facility] Disposition: SNF Condition: Stable Level of Care: SNF Discharge Activity: Partial-Weight bearing - Right lower extremity Discharge Diet: Consistent carbs Half-Way Therapy: Physical Therapy, Occupation Therapy Referrals: Moises Posey MD [Primary Care Provider] - Additional Patient Instructions (free text): Follow up with PCP in 2 weeks. Prescriptions (Any new or edited meds): Amlodipine Besylate 10 mg PO DAILY #90 tab Transmission Status: Pending to [email or web address] Docusate Sodium 100 mg PO BID #60 cap Transmission Status: Pending to [email or web address] Complete Home Medications List: Complete Home Medication List: Sodium Fluoride [Prevident 5000] 1 appl DENTAL BID 01/14/15 miscellaneous medical supply See Dose Instructions .ROUTE .MEDSUPPLY #1 ea 12/26/17 blood sugar diagnostic See Dose Instructions .ROUTE .MEDSUPPLY #100 ea 02/28/18 blood-glucose meter See Dose Instructions .ROUTE .MEDSUPPLY #1 ea 02/28/18 lancets See Dose Instructions .ROUTE .MEDSUPPLY #200 ea 02/28/18 cyclobenzaprine 5 mg tablet 5 mg PO TID PRN #90 tab 03/19/18 blood-glucose meter See Dose Instructions .ROUTE .MEDSUPPLY #1 ea 06/18/18 niacin 500 mg tablet 500 mg PO DAILY #90 tab 09/12/18 polyethylene glycol 3350 17 gram/dose oral powder 17 g PO DAILY PRN #510 g 09/20/18 ramipril 10 mg capsule 10 mg PO BID #180 cap 09/20/18 pen needle,diabetic dual safty 30 gauge x 3/16" See Dose Instructions .ROUTE .MEDSUPPLY #200 ea 11/13/18 lidocaine 5 % topical patch 1 patch TP DAILY #30 ea 11/29/18 menthol 4 % topical gel 4 % TP BID #89 ml 11/29/18 clopidogrel 75 mg tablet 75 mg PO DAILY #90 tab 11/30/18 gabapentin 300 mg capsule 300 mg PO TID #270 cap 11/30/18 metoprolol tartrate 25 mg tablet 25 mg PO BID #180 tab 11/30/18 oxybutynin chloride 5 mg tablet 5 mg PO BID #180 tab 11/30/18 azelastine 0.05 % eye drops 1 drp OP BID 12/04/18 cyanocobalamin (vitamin B-12) 1,000 mcg tablet 1,000 mcg PO DAILY 12/04/18 estradiol 1 g VG 2XW 12/04/18 topiramate 100 mg tablet 100 mg PO BID 12/04/18 metformin 500 mg tablet 500 mg PO BIDWM #180 tab 12/10/18 Cyclosporine [Restasis] 1 drp OPHTHALMIC (EYE) BID 12/18/18 traZODone HCL [Trazodone HCl] 2 tab PO HS 12/18/18 simvastatin 20 mg tablet 20 mg PO QPM #90 tab 12/21/18 insulin syringe,safetyneedle 1 mL 30 gauge x 1/2" See Dose Instructions .ROUTE .MEDSUPPLY #100 ea 12/31/18 alprazolam 0.5 mg tablet 0.5 mg PO TID PRN #90 tab 01/25/19 aripiprazole 5 mg tablet 5 mg PO DAILY #30 tab 01/25/19 walker See Dose Instructions .ROUTE .MEDSUPPLY #1 ea 02/08/19 traMADol HCL [Ultram] 50 mg PO QID PRN #20 tab 02/14/19 Acetaminophen 500 mg PO TID 02/27/19 Acetaminophen 650 mg PO Q6H PRN 02/27/19 Bisacodyl 10 mg RC DAILY PRN 02/27/19 Bismuth Subsalicylate [Stomach Relief] 2 tab PO Q1H PRN 02/27/19 Calcium Carbonate/Vitamin D3 [Oysco 500-Vit D3 200 Tablet] 2 ea PO DAILY 02/27/19 Chlorhexidine Gluconate [Peridex 0.12%] 15 ml MM Q30D 02/27/19 Dental Adhesive [Fixodent Denture Adhesive] 1 appl DENTAL DAILY 02/27/19 Diclofenac Sodium [Voltaren] 2 g TOPICAL BID PRN 02/27/19 Erenumab-Aooe [Aimovig Autoinjector] 140 mg SQ Q30D 02/27/19 Insulin Aspart [Novolog Flexpen] See Protocol SQ 02/27/19 Insulin NPH Human Recom [Novolin N] 30 units SC BID 02/27/19 Multivit,Tx with Iron,Minerals [Thera-M] 1 ea PO DAILY 02/27/19 Onabotulinumtoxina [Botox] 200 units IM Q90D 02/27/19 Ropinirole HCl [Requip Xl] 2 mg PO HS 02/27/19 Tolterodine Tartrate [Tolterodine Tartrate ER] 2 mg PO DAILY 02/27/19 Vortioxetine Hydrobromide [Trintellix] 20 mg PO DAILY 02/27/19 Amlodipine Besylate 10 mg PO DAILY #90 tab 03/05/19 Docusate Sodium 100 mg PO BID #60 cap 03/05/19
[2019-03-05 09:30] VITALS: BP 143/78
== END 2019-03-05 10:09 | DRG 690 ==
LOC: MS 14:31 → ER 14:31 → MS 17:34
PROVIDERS: ADMIT Internal Medicine; ATTEND Internal Medicine
DX: L89.152 Pressure ulcer of sacral region, stage 2; E78.00 Pure hypercholesterolemia, unspecified; S72.101D Unspecified trochanteric fracture of right femur, subsequent encounter for closed fracture with routine healing; I69.354 Hemiplegia and hemiparesis following cerebral infarction affecting left non-dominant side; R32 Unspecified urinary incontinence; F32.9 Major depressive disorder, single episode, unspecified; N39.0 Urinary tract infection, site not specified; I10 Essential (primary) hypertension; B96.20 Unspecified Escherichia coli [E. coli] as the cause of diseases classified elsewhere; E11.9 Type 2 diabetes mellitus without complications
CPT/HCPCS: 36415; 36600; 71010; 71045; 74019; 74020; 80048; 80053; 81001; 82803; 83605; 85025; 87040; 87081; 87086; 90686; 96365; 96367; 96375; 96376; 97110; 97162; 97165; 97530; 97535; 99285

== ENCOUNTER 2020-04-26 15:43 | Inpatient (IN) ==
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
[2020-04-26] MEDS ORDERED: MORPHINE SULFATE 2 MG/ML DISP.SYRIN IV ONE (16:18)
[2020-04-26 16:34] LABS: Hematocrit 43.9 % (37.0-47.0); Hemoglobin 14.5 gm/dL (12.5-16.0); Mean Cell Volume 94.8 fl (78-100); Mean Corpuscular Hemoglobin 31.3 pg (27-31); Mean Platelet Volume 8.8 fl (8-12.5); Neutrophil # 6.4 K/mm3 (1.3-6.0); Neutrophil % 65.7 % (42-75.0); Platelet Count 166 K/mm3 (150-450); Red Blood Count 4.63 M/mm3 (4.2-5.4); Red Cell Distribution Width 12.1 % (11.5-14.0); White Blood Count 9.8 K/mm3 (4.0-10.5)
[2020-04-26 16:40] LABS: INR 1.05 INR (0.92-1.08); Prothrombin Time (Patient) 10.4 Seconds (9.1-10.7)
[2020-04-26 16:42] LABS: Albumin * 3.6 gm/dl (3.4-5.0); Anion Gap 13.9 mmol/L (6.8-13.8); BUN/Creatinine Ratio 13.4 (9.0-21.6); Bilirubin, Total 0.3 mg/dL (0.0-1.1); Ca. Corrected For Albumin 8.9 mg/dL (8.4-10.2); Calcium * 8.9 mg/dL (7.9-10.9); Carbon Dioxide 26.1 mmol/L (24-32.6); Total Protein 7.2 gm/dL (6.2-8.2)
[2020-04-26] MEDS ORDERED: MORPHINE SULFATE 4 MG/ML SYRG IV ONE (17:24)
[2020-04-26] MEDS ORDERED: NORMAL SALINE 1,000 ML IV ONE (17:35)
[2020-04-26] MEDS ORDERED: ACETAMINOPHEN 325 MG TABLET PO PRN ×2 (17:37→20:23)
[2020-04-26] MEDS ORDERED: DIAZEPAM 5 MG/ML SYRG IV ONE (18:14)
[2020-04-26] MEDS ORDERED: LOPERAMIDE HCL 2 MG CAPSULE PO PRN (20:16)
[2020-04-26] MEDS ORDERED: POLYETHYLENE GLYCOL 3350 119 GM BTL PO PRN (20:16)
[2020-04-26] MEDS: MORPHINE SULFATE 4 MG/ML SYRG IV PRN (20:21)
[2020-04-26] MEDS ORDERED: ESTRADIOL 42.5 APPL TUBE VG SCH (20:30)
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
[2020-04-26] MEDS ORDERED: INSULIN DETEMIR 100 UNITS/ML VIAL SC SCH (21:00)
[2020-04-26] MEDS ORDERED: CYCLOBENZAPRINE HCL 10 MG TABLET PO PRN (21:29)
[2020-04-26] MEDS ORDERED: ARIPiprazole 10 MG TABLET PO ONE (22:59)
[2020-04-26] MEDS: TOPIRAMATE 50 MG TABLET PO SCH (23:04)
[2020-04-26] MEDS: RAMIPRIL 2.5 MG CAPSULE PO SCH (23:04)
[2020-04-26] MEDS: METOPROLOL TARTRATE 25 MG TABLET PO SCH (23:05)
[2020-04-26] MEDS: SENNOSIDES/DOCUSATE SODIUM 1 TAB TABLET PO SCH (23:05)
[2020-04-26] MEDS: DOCUSATE SODIUM 100 MG CAPSULE PO SCH (23:05)
[2020-04-26] MEDS: SIMVASTATIN 10 MG TABLET PO SCH (23:05)
[2020-04-26] MEDS: TOLTERODINE TARTRATE 2 MG CAPSULE PO SCH (23:05)
[2020-04-26] MEDS: MIRTAZAPINE 15 MG TABLET PO SCH (23:06)
[2020-04-26] MEDS: CYCLOBENZAPRINE HCL 10 MG TABLET PO SCH (23:06)
[2020-04-26] MEDS: CHOLESTYRAMINE/ASPARTAME 4 GM PACKET PO SCH (23:07)
[2020-04-26] MEDS: ARIPiprazole 5 MG TABLET PO SCH (23:07)
[2020-04-26] MEDS: LIDOCAINE 1 PATCH ADH..PATCH TP SCH (23:13)
[2020-04-27] MEDS: INSULIN GLARGINE,HUM.REC.ANLOG 100 UNITS/ML VIAL SC SCH ×2 (00:19→21:48)
[2020-04-27] MEDS: PANTOPRAZOLE SODIUM 40 MG in NORMAL SALINE 100 ML IV SCH ×3 (00:43→21:52)
[2020-04-27] MEDS: NORMAL SALINE 1,000 ML IV PRN ×2 (06:59→15:19)
[2020-04-27] MEDS: MORPHINE SULFATE 4 MG/ML SYRG IV PRN (06:59)
[2020-04-27] MEDS: AZELASTINE HCL 0.05% EACHEYE SCH ×3 (07:00→21:41)
[2020-04-27] MEDS ORDERED: POLYETHYLENE GLYCOL 3350 17 GM PACKET PO PRN (07:45)
[2020-04-27] MEDS ORDERED: ceFAZolin SODIUM 1 GM in DEXTROSE 5 % IN WATER 100 ML IV ONE ×2 (08:59)
--- NOTE | 2020-04-27 09:53 | PN ---
Subjective - Date and Time Seen Date: 04/27/20 Time: 09:44 Subjective Narrative: My pain is controlled for now. Objective Objective Narrative: 69-year-old female admitted for fracture of her right femur secondary to a fall that occurred yesterday at her [facility] when she fell out of bed. Patient had an uneventful night, no major concerns were reported by overnight staff. At the moment she reports that her pain is adequately controlled and appears to be comfortable. The patient was originally scheduled for surgery this morning however Ortho informed us that one of the hardware needed for the surgery will not arrive until tomorrow morning, therefore surgery had to be rescheduled for tomorrow. After receiving this news a consistent carb diet was ordered and n.p.o. was canceled. The patient maintained stable vitals however her blood pressure slightly elevated this morning, will administer her morning meds in an effort to better control her BP. - Review of Systems Generalized/Overall Review: Reports: No Symptoms Reported EENTM: Reports: No Symptoms Reported Respiratory: Reports: No Symptoms Reported Cardiac: Reports: No Symptoms Reported Abdominal: Reports: No Symptoms Reported Genitourinary Symptoms: Reports: No Symptoms Reported Musculoskeletal Complaints: Reports: Joint Pain - Right lower extremity pain Neurological: Reports: No Symptoms Reported Skin: Reports: No Symptoms Reported Endocrine: Reports: No Symptoms Reported - Vitals Vitals: Last Vital Signs Temp 37.7 C 04/27/20 06:37 Pulse 84 04/27/20 06:37 Resp 16 04/27/20 06:37 BP 156/85 H 04/27/20 06:37 Pulse Ox 97 04/27/20 06:37 - Abnormal Lab Findings Abnormal Lab Findings: Abnormal Lab Results 04/26/20 04/26/20 Range/Units 16:20 16:20 MCH 31.3 H (27-31) pg Eosinophils % 4.0 H (0.0-3.0) % Neutrophils # 6.4 H (1.3-6.0) K/mm3 Sodium 143 H (132-142) mmol/L Plasma Sodium 145 H (130-142) mmol/L Chloride 107 H (97-106) mmol/L Anion Gap 13.9 H (6.8-13.8) mmol/L Random Glucose 195 H (70-110) mg/dL - Exam Constitutional: Present: Alert, Cooperative, Well developed, Well nourished, No distress, Elderly ENT Exam: Present: normal ENT inspection, hearing grossly normal Neck: Present: non-tender, full range of motion, supple, normal inspection, trachea midline Breasts: Present: Exam deferred, Nontender Respiratory: Present: chest non-tender, lungs clear, normal breath sounds, no respiratory distress, no accessory muscle use Cardiovascular/Chest: Present: normal peripheral pulses, regular rate, rhythm, no chest tenderness, no edema, no gallop, no JVD, no murmur, no rub Abdomen: Present: Normal bowel sounds, soft, nontender, nondistended, no rebound tenderness, no hepatospenomegaly, no masses /Rectal: Present: Exam deferred Extremity: Present: leg pain, other - Abnormal rotation and shortening of right lower extremity Skin Exam: Present: normal color, warm/dry, no cyanosis Lymphatic: Present: no adenopathy Neurologic: Present: no motor/sensory deficits, alert, normal mood/affect, oriented x 3 Appearance: Present: appropriate appearance Eye contact: Present: cooperative, good eye contact, normal speech Thoughts: Present: normal thought pattern, no apparent hallucination Cauti Physician Documentation - Urinary Catheter Management 2-way Urethral Urethral Indwelling: Yes Date of Insertion: 04/26/20 Time of Insertion: 16:56 Assessment/Plan Plan Narrative: Diet has been resumed, patient is still medically cleared for her surgery tomorrow morning. We will reevaluate her in the morning. - Problems/Diagnosis (1) Femur fracture, right Problem: Acute Qualifiers: Encounter type: initial encounter Femur location: unspecified portion of femur Fracture type: closed Fracture morphology: unspecified fracture morphology Qualified Code(s): S72.91XA - Unspecified fracture of right femur, initial encounter for closed fracture (2) Diabetes mellitus Problem: Chronic Qualifiers: Diabetes mellitus type: type 2 (3) Hypertension Problem: Chronic Qualifiers: (4) CVA (cerebral vascular accident) Problem: Chronic Qualifiers: (5) Major depression Problem: Chronic Qualifiers: (6) 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 (7) Left hemiparesis Problem: Acute (8) Fall Problem: Acute
[2020-04-27] MEDS: RAMIPRIL 2.5 MG CAPSULE PO SCH ×2 (10:06→21:42)
[2020-04-27] MEDS: DONEPEZIL HCL 5 MG TABLET PO SCH (10:06)
[2020-04-27] MEDS: ARIPiprazole 5 MG TABLET PO SCH (10:06)
[2020-04-27] MEDS: DOCUSATE SODIUM 100 MG CAPSULE PO SCH ×2 (10:07→21:42)
[2020-04-27] MEDS: LIDOCAINE 1 PATCH ADH..PATCH TP SCH (10:07)
[2020-04-27] MEDS: metFORMIN HCL 500 MG TABLET PO SCH ×2 (10:07→16:20)
[2020-04-27] MEDS: MULTIVITAMINS 1 TAB TAB.CHEW PO SCH (10:07)
[2020-04-27] MEDS: TOLTERODINE TARTRATE 2 MG CAPSULE PO SCH (10:07)
[2020-04-27] MEDS: METOPROLOL TARTRATE 25 MG TABLET PO SCH ×2 (10:08→21:43)
[2020-04-27] MEDS: amLODIPine BESYLATE 10 MG TABLET PO SCH (10:08)
[2020-04-27] MEDS: NYSTATIN 15 APPL BTL TP SCH ×3 (10:08→16:20)
[2020-04-27] MEDS: GABAPENTIN 300 MG CAPSULE PO SCH ×3 (10:08→16:21)
[2020-04-27] MEDS: CHOLESTYRAMINE/ASPARTAME 4 GM PACKET PO SCH ×2 (10:09→21:43)
[2020-04-27] MEDS: SENNOSIDES/DOCUSATE SODIUM 1 TAB TABLET PO SCH ×2 (10:10→21:44)
[2020-04-27] MEDS: rOPINIRole HCL 1 MG TABLET PO SCH ×2 (10:10→21:44)
[2020-04-27] MEDS: TOPIRAMATE 50 MG TABLET PO SCH ×2 (10:10→21:52)
[2020-04-27] MEDS: VORTIOXETINE HYDROBROMIDE 10 MG TABLET PO SCH (10:10)
[2020-04-27] MEDS: CYANOCOBALAMIN 1,000 MCG TABLET PO SCH (10:10)
--- NOTE | 2020-04-27 13:24 | CONS ---
HPI - General Date of Service: 04/27/20 Source: patient, other - Chart - History of Present Illness Initial Comments: Yuliana is a 69-year-old female who is a resident of the [facility] that at some point time rolled out of her bed onto the floor sustaining an injury to her right leg. She apparently does not ambulate at all and is completely reliant on Hernandez lift. She is unable to give me a history at this time but is alert and will respond to questions. She is not oriented to place and cannot describe how she fell out of bed. She reports her right knee hurts. Timing/Duration: 24 hours Allergies/Adverse Reactions: Allergies latex Allergy (Mild, Verified 07/23/19 10:04) Hives Home Medications: Home Medications Medication Instructions Recorded Last Taken blood sugar diagnostic See Dose Instructions .ROUTE 02/28/18 Unknown .MEDSUPPLY #100 ea lancets See Dose Instructions .ROUTE 02/28/18 Unknown .MEDSUPPLY #200 ea polyethylene glycol 3350 17 17 g PO DAILY PRN #510 g 09/20/18 Unknown gram/dose oral powder ramipril 10 mg capsule 10 mg PO BID #180 cap 09/20/18 12/17/18 pen needle,diabetic dual safty 30 See Dose Instructions .ROUTE 11/13/18 Unknown gauge x 3/16" .MEDSUPPLY #200 ea lidocaine 5 % topical patch 1 patch TP DAILY #30 ea 11/29/18 12/17/18 clopidogrel 75 mg tablet 75 mg PO DAILY #90 tab 11/30/18 12/17/18 gabapentin 300 mg capsule 300 mg PO TID #270 cap 11/30/18 12/17/18 metoprolol tartrate 25 mg tablet 25 mg PO BID #180 tab 11/30/18 12/18/18 azelastine 0.05 % eye drops 1 drp OP BID 12/04/18 12/17/18 estradiol 1 g VG 2XW 12/04/18 12/17/18 topiramate 100 mg tablet 100 mg PO BID 12/04/18 12/17/18 metformin 500 mg tablet 500 mg PO BIDWM #180 tab 12/10/18 12/17/18 Cyclosporine [Restasis] 1 drp OPHTHALMIC (EYE) BID 12/18/18 Unknown insulin syringe,safetyneedle 1 mL See Dose Instructions .ROUTE 12/31/18 Unknown 30 gauge x 1/2" .MEDSUPPLY #100 ea sofya See Dose Instructions .ROUTE 02/08/19 Unknown .MEDSUPPLY #1 ea Acetaminophen 650 mg PO Q6H PRN 02/27/19 Unknown Multivit,Tx with Iron,Minerals 1 ea PO DAILY 02/27/19 Unknown [Thera-M] Onabotulinumtoxina [Botox] 200 units IM Q90D 02/27/19 Unknown Ropinirole HCl [Requip Xl] 2 mg PO HS 02/27/19 Unknown Tolterodine Tartrate [Tolterodine 2 mg PO DAILY 02/27/19 Unknown Tartrate ER] Amlodipine Besylate 10 mg PO DAILY #90 tab 03/05/19 Unknown donepezil 5 mg tablet 5 mg PO DAILY 03/26/19 Unknown sennosides 8.6 mg-docusate sodium 1 tab PO BID 03/26/19 Unknown 50 mg tablet simvastatin 10 mg tablet 10 mg PO HS tab 03/26/19 Unknown loperamide 2 mg capsule 2 mg PO Q4H PRN #30 cap 04/03/19 Unknown cholestyramine (with sugar) 4 gram 4 g PO BID 04/19/19 Unknown oral powder erenumab-aooe 140 mg/mL 140 mg SUBCUT QMONTH 04/19/19 Unknown subcutaneous auto-injector cyanocobalamin (vitamin B-12) 1,000 mcg PO DAILY 06/03/19 Unknown 1,000 mcg capsule acetaminophen 500 mg capsule 500 mg PO QID 07/23/19 Unknown nystatin 100,000 unit/gram topical 1 applic TP TID 07/23/19 Unknown powder cyclobenzaprine 5 mg tablet 5 mg PO BID PRN #30 tab 09/16/19 Unknown cyclobenzaprine 5 mg tablet 5 mg PO HS #30 tab 09/16/19 Unknown tramadol 50 mg tablet 50 mg PO HS #30 tab 09/16/19 Unknown tramadol 50 mg tablet 50 mg PO TID PRN #30 tab 09/16/19 Unknown insulin detemir U-100 100 unit/mL 10 unit SUBCUT HS #10 ml 12/04/19 Unknown subcutaneous solution ceftriaxone 1 gram solution for 1 g IM DAILY #5 ea 12/26/19 Unknown injection aripiprazole 5 mg tablet 5 mg PO DAILY #30 tab 02/18/20 Unknown mirtazapine 15 mg tablet 15 mg PO HS #30 tab 02/18/20 Unknown vortioxetine 20 mg tablet 20 mg PO DAILY #30 tab 02/18/20 Unknown Procedures Application of other wound dressing (01/27/01) Application of splint (07/25/12) Closed [percutaneous] [needle] biopsy of breast (02/04/15) Closure of skin and subcutaneous tissue of other sites (08/29/99) Colonoscopy (09/21/10) Endometrial ablation (06/23/06) Endoscopic polypectomy of large intestine (02/08/05) Injection of anesthetic into spinal canal for analgesia (06/18/14) Injection of other agent into spinal canal (06/18/14) Injection of steroid (06/18/14) Injection or infusion of other therapeutic or prophylactic substance (01/19/07) Laparoscopic cholecystectomy (09/06/07) Laparoscopic lysis of peritoneal adhesions (09/06/07) Open reduction of fracture with internal fixation, tibia and fibula (04/16/00) Other and unspecified vaginal hysterectomy (07/27/11) Other cystoscopy (07/27/11) Other diagnostic procedures on breast (02/04/15) Release of carpal tunnel (03/07/14) Removal of implanted devices from bone, tibia and fibula (05/28/01) X-ray, other and unspecified (02/04/15) Medications - Medications Current Medications: Current Medications Amlodipine Besylate (Amlodipine Besylate 10 Mg Tablet) 10 mg PO DAILY [facility] Stop: 05/27/20 09:01 Last Admin: 04/27/20 10:08 Dose: 10 mg Documented by: Aripiprazole (Aripiprazole 5 Mg Tablet) 5 mg PO DAILY [facility] Stop: 05/26/20 20:31 Last Admin: 04/27/20 10:06 Dose: 5 mg Documented by: Cholestyramine Resin (Cholestyramine/Aspartame 4 Gm Packet) 4 gm PO BID [facility] Stop: 05/26/20 21:31 Last Admin: 04/27/20 10:09 Dose: 4 gm Documented by: Cyanocobalamin (Cyanocobalamin 1,000 Mcg Tablet) 1,000 mcg PO DAILY [facility] Stop: 05/27/20 09:01 Last Admin: 04/27/20 10:10 Dose: 1,000 mcg Documented by: Cyclobenzaprine HCl (Cyclobenzaprine Hcl 10 Mg Tablet) 5 mg PO HS [facility] Stop: 05/26/20 21:31 Last Admin: 04/26/20 23:06 Dose: 5 mg Documented by: Docusate Sodium (Docusate Sodium 100 Mg Capsule) 100 mg PO BID [facility] Stop: 05/26/20 21:01 Last Admin: 04/27/20 10:07 Dose: 100 mg Documented by: Donepezil HCl (Donepezil Hcl 5 Mg Tablet) 5 mg PO DAILY [facility] Stop: 05/27/20 09:01 Last Admin: 04/27/20 10:06 Dose: 5 mg Documented by: Gabapentin (Gabapentin 300 Mg Capsule) 300 mg PO TID [facility] Stop: 05/27/20 09:01 Last Admin: 04/27/20 10:08 Dose: 300 mg Documented by: Pantoprazole Sodium 40 mg/ (Sodium Chloride) 100 mls @ 400 mls/hr IV Q12H [facility] Stop: 05/26/20 21:31 Last Infusion: 04/27/20 11:00 Dose: Infused Documented by: Sodium Chloride (Sodium Chloride 0.9%) 1,000 mls @ 125 mls/hr IV .Q8H PRN PRN Reason: HYDRATION PREOP Stop: 05/27/20 06:55 Last Admin: 04/27/20 06:59 Dose: 125 mls/hr Documented by: Insulin Glargine (Insulin Glargine,Hum.Rec.Anlog 100 Units/Ml Vial) 10 units SC [facility] Stop: 05/26/20 21:01 Last Admin: 04/27/20 00:19 Dose: 10 units Documented by: Lidocaine (Lidocaine 1 Patch Adh..Patch) 1 patch TP DAILY [facility] Stop: 05/26/20 20:31 Last Admin: 04/27/20 10:07 Dose: Not Given Documented by: Metformin HCl (Metformin Hcl 500 Mg Tablet) 500 mg PO BIDWM [facility] Stop: 05/27/20 09:01 Last Admin: 04/27/20 10:07 Dose: 500 mg Documented by: Metoprolol Tartrate (Metoprolol Tartrate 25 Mg Tablet) 25 mg PO BID [facility] Stop: 05/26/20 21:01 Last Admin: 04/27/20 10:08 Dose: 25 mg Documented by: Mirtazapine (Mirtazapine 15 Mg Tablet) 15 mg PO [facility] Stop: 05/26/20 21:01 Last Admin: 04/26/20 23:06 Dose: 15 mg Documented by: Morphine Sulfate (Morphine Sulfate 4 Mg/Ml Syrg) 4 mg IV Q4H PRN PRN Reason: Moderate Pain (pain scale 4-6) Stop: 05/26/20 17:46 Last Admin: 04/27/20 06:59 Dose: 4 mg Documented by: Multivitamins Pediatric (Multivitamins 1 Tab Tab.Chew) 1 tab PO DAILY [facility] Stop: 05/27/20 09:01 Last Admin: 04/27/20 10:07 Dose: 1 tab Documented by: Azelastine Hcl 0.05 (%) 1 drp EACHEYE BID [facility] Stop: 05/26/20 21:01 Last Admin: 04/27/20 10:07 Dose: Not Given Documented by: Nystatin (Nystatin 15 Appl Btl) 1 appl TP TID [facility] Stop: 05/27/20 09:01 Last Admin: 04/27/20 10:08 Dose: 1 appl Documented by: Ramipril (Ramipril 2.5 Mg Capsule) 10 mg PO BID [facility] Stop: 05/26/20 21:46 Last Admin: 04/27/20 10:06 Dose: 10 mg Documented by: Ropinirole HCl (Ropinirole Hcl 1 Mg Tablet) 1 mg PO BID [facility] Stop: 05/27/20 09:01 Last Admin: 04/27/20 10:10 Dose: 1 mg Documented by: Senna/Docusate Sodium (Sennosides/Docusate Sodium 1 Tab Tablet) 1 tab PO BID [facility] Stop: 05/26/20 21:01 Last Admin: 04/27/20 10:10 Dose: 1 tab Documented by: Simvastatin (Simvastatin 10 Mg Tablet) 10 mg PO [facility] Stop: 05/26/20 21:01 Last Admin: 04/26/20 23:05 Dose: 10 mg Documented by: Tolterodine Tartrate (Tolterodine Tartrate 2 Mg Capsule) 2 mg PO DAILY [facility] Stop: 05/26/20 20:31 Last Admin: 04/27/20 10:07 Dose: 2 mg Documented by: Topiramate (Topiramate 50 Mg Tablet) 100 mg PO BID [facility] Stop: 05/26/20 21:46 Last Admin: 04/27/20 10:10 Dose: 100 mg Documented by: Vortioxetine (Vortioxetine Hydrobromide 10 Mg Tablet) 20 mg PO DAILY [facility] Stop: 05/27/20 09:01 Last Admin: 04/27/20 10:10 Dose: 20 mg Documented by: Physical Examination - Exam Narrative: Patient is currently lying in bed. She has Butler's traction on. The position she is lying in has significant internal rotation of her lower extremity and knee. With me repositioning the pillow under her lower leg I am able to straighten her knee out and patient reports discomfort in the thigh area with this but did tolerate it well. She will wiggle her toes in her right foot for me. She reports she can feel me touch her in her right foot. Pulse intact right lower extremity. X-rays reviewed in detail showing oblique fracture of the distal one third of the femur that is displaced. Total knee arthroplasty in place. Hip films show no retained hardware. Vital Signs: Vital Signs - Last Taken Temp 37.7 C 04/27/20 06:37 Pulse 84 04/27/20 10:08 Resp 16 04/27/20 06:37 BP 156/85 H 04/27/20 10:08 Pulse Ox 97 04/27/20 06:37 O2 Oxygen Delivery Method Room Air - Results and Findings: Lab/Microbiology results last 24 hrs: Abnormal/Pending Laboratory Last 24 HRS 04/26/20 04/26/20 16:20 16:20 MCH 31.3 H Eosinophils % 4.0 H Neutrophils # 6.4 H Sodium 143 H Plasma Sodium 145 H Chloride 107 H Anion Gap 13.9 H Random Glucose 195 H - Assessments/Findings (1) Femur fracture, right Diagnosis(s): Discussed with family member/power of city attorney on the phone Yuliana's injury. Recommend open reduction internal fixation. Our vendor was contacted on getting the specific plates for this injury. They were unsure if they would have them here until later in the day today. Discussed with POA/family member surgical risk. Consents obtained. Plan for surgery tomorrow. She will be n.p.o. at midnight tonight Problem: Acute Qualifiers: Encounter type: initial encounter Femur location: unspecified portion of femur Fracture type: closed Fracture morphology: unspecified fracture morphology Qualified Code(s): S72.91XA - Unspecified fracture of right femur, initial encounter for closed fracture (2) Fall Problem: Acute
[2020-04-27] MEDS: CYCLOBENZAPRINE HCL 10 MG TABLET PO SCH (21:42)
[2020-04-27] MEDS: MIRTAZAPINE 15 MG TABLET PO SCH (21:44)
[2020-04-27] MEDS: SIMVASTATIN 10 MG TABLET PO SCH (21:52)
[2020-04-28] MEDS: NORMAL SALINE 1,000 ML IV PRN ×3 (00:01→15:05)
[2020-04-28] MEDS ORDERED: ceFAZolin SODIUM 1 GM VIAL IV PRN (06:00)
[2020-04-28] MEDS: AZELASTINE HCL 0.05% EACHEYE SCH ×2 (08:15→22:32)
[2020-04-28] MEDS: CHOLESTYRAMINE/ASPARTAME 4 GM PACKET PO SCH ×2 (08:23→20:22)
[2020-04-28] MEDS: MULTIVITAMINS 1 TAB TAB.CHEW PO SCH (08:23)
[2020-04-28] MEDS: SENNOSIDES/DOCUSATE SODIUM 1 TAB TABLET PO SCH ×2 (08:24→20:19)
[2020-04-28] MEDS: CYANOCOBALAMIN 1,000 MCG TABLET PO SCH (08:24)
[2020-04-28] MEDS: DOCUSATE SODIUM 100 MG CAPSULE PO SCH ×2 (08:25→20:21)
[2020-04-28] MEDS: GABAPENTIN 300 MG CAPSULE PO SCH ×3 (08:26→18:43)
[2020-04-28] MEDS: VORTIOXETINE HYDROBROMIDE 10 MG TABLET PO SCH (08:27)
[2020-04-28] MEDS: DONEPEZIL HCL 5 MG TABLET PO SCH (08:27)
[2020-04-28] MEDS: metFORMIN HCL 500 MG TABLET PO SCH ×2 (08:27→18:44)
[2020-04-28] MEDS: ARIPiprazole 5 MG TABLET PO SCH (08:29)
[2020-04-28] MEDS: METOPROLOL TARTRATE 25 MG TABLET PO SCH ×2 (08:30→20:22)
[2020-04-28] MEDS: TOLTERODINE TARTRATE 2 MG CAPSULE PO SCH (08:30)
[2020-04-28] MEDS: NYSTATIN 15 APPL BTL TP SCH ×3 (08:30→18:45)
[2020-04-28] MEDS: LIDOCAINE 1 PATCH ADH..PATCH TP SCH (08:30)
[2020-04-28] MEDS: rOPINIRole HCL 1 MG TABLET PO SCH ×2 (08:31→20:23)
[2020-04-28] MEDS: TOPIRAMATE 50 MG TABLET PO SCH ×2 (08:31→20:19)
[2020-04-28] MEDS: PANTOPRAZOLE SODIUM 40 MG in NORMAL SALINE 100 ML IV SCH ×2 (08:32→20:31)
--- NOTE | 2020-04-28 11:28 | ANES ---
Anesthesia Pre Procedure Eval Vitals/Labs: Last Vital Signs Temp 36.8 C 04/28/20 10:02 Pulse 66 04/28/20 10:02 Resp 16 04/28/20 10:02 BP 143/76 04/28/20 10:02 Pulse Ox 97 04/28/20 10:02 HOME MEDICATIONS blood sugar diagnostic See Dose Instructions .ROUTE .MEDSUPPLY #100 ea 02/28/18 [Last Taken Unknown] lancets See Dose Instructions .ROUTE .MEDSUPPLY #200 ea 02/28/18 [Last Taken Unknown] polyethylene glycol 3350 17 gram/dose oral powder 17 g PO DAILY PRN #510 g 09/20/18 [Last Taken Unknown] ramipril 10 mg capsule 10 mg PO BID #180 cap 09/20/18 [Last Taken 12/17/18] pen needle,diabetic dual safty 30 gauge x 3/16" See Dose Instructions .ROUTE .MEDSUPPLY #200 ea 11/13/18 [Last Taken Unknown] lidocaine 5 % topical patch 1 patch TP DAILY #30 ea 11/29/18 [Last Taken 12/17/18] clopidogrel 75 mg tablet 75 mg PO DAILY #90 tab 11/30/18 [Last Taken 12/17/18] gabapentin 300 mg capsule 300 mg PO TID #270 cap 11/30/18 [Last Taken 12/17/18] metoprolol tartrate 25 mg tablet 25 mg PO BID #180 tab 11/30/18 [Last Taken 12/18/18] azelastine 0.05 % eye drops 1 drp OP BID 12/04/18 [Last Taken 12/17/18] estradiol 1 g VG 2XW 12/04/18 [Last Taken 12/17/18] topiramate 100 mg tablet 100 mg PO BID 12/04/18 [Last Taken 12/17/18] metformin 500 mg tablet 500 mg PO BIDWM #180 tab 12/10/18 [Last Taken 12/17/18] Cyclosporine [Restasis] 1 drp OPHTHALMIC (EYE) BID 12/18/18 [Last Taken Unknown] insulin syringe,safetyneedle 1 mL 30 gauge x 1/2" See Dose Instructions .ROUTE .MEDSUPPLY #100 ea 12/31/18 [Last Taken Unknown] walker See Dose Instructions .ROUTE .MEDSUPPLY #1 ea 02/08/19 [Last Taken Unknown] Acetaminophen 650 mg PO Q6H PRN 02/27/19 [Last Taken Unknown] Multivit,Tx with Iron,Minerals [Thera-M] 1 ea PO DAILY 02/27/19 [Last Taken Unknown] Onabotulinumtoxina [Botox] 200 units IM Q90D 02/27/19 [Last Taken Unknown] Ropinirole HCl [Requip Xl] 2 mg PO HS 02/27/19 [Last Taken Unknown] Tolterodine Tartrate [Tolterodine Tartrate ER] 2 mg PO DAILY 02/27/19 [Last Taken Unknown] Amlodipine Besylate 10 mg PO DAILY #90 tab 03/05/19 [Last Taken Unknown] donepezil 5 mg tablet 5 mg PO DAILY 03/26/19 [Last Taken Unknown] sennosides 8.6 mg-docusate sodium 50 mg tablet 1 tab PO BID 03/26/19 [Last Taken Unknown] simvastatin 10 mg tablet 10 mg PO HS tab 03/26/19 [Last Taken Unknown] loperamide 2 mg capsule 2 mg PO Q4H PRN #30 cap 04/03/19 [Last Taken Unknown] cholestyramine (with sugar) 4 gram oral powder 4 g PO BID 04/19/19 [Last Taken Unknown] erenumab-aooe 140 mg/mL subcutaneous auto-injector 140 mg SUBCUT QMONTH 04/19/19 [Last Taken Unknown] cyanocobalamin (vitamin B-12) 1,000 mcg capsule 1,000 mcg PO DAILY 06/03/19 [Last Taken Unknown] acetaminophen 500 mg capsule 500 mg PO QID 07/23/19 [Last Taken Unknown] nystatin 100,000 unit/gram topical powder 1 applic TP TID 07/23/19 [Last Taken Unknown] cyclobenzaprine 5 mg tablet 5 mg PO BID PRN #30 tab 09/16/19 [Last Taken Unknown] cyclobenzaprine 5 mg tablet 5 mg PO HS #30 tab 09/16/19 [Last Taken Unknown] tramadol 50 mg tablet 50 mg PO HS #30 tab 09/16/19 [Last Taken Unknown] tramadol 50 mg tablet 50 mg PO TID PRN #30 tab 09/16/19 [Last Taken Unknown] insulin detemir U-100 100 unit/mL subcutaneous solution 10 unit SUBCUT HS #10 ml 12/04/19 [Last Taken Unknown] ceftriaxone 1 gram solution for injection 1 g IM DAILY #5 ea 12/26/19 [Last Taken Unknown] aripiprazole 5 mg tablet 5 mg PO DAILY #30 tab 02/18/20 [Last Taken Unknown] mirtazapine 15 mg tablet 15 mg PO HS #30 tab 02/18/20 [Last Taken Unknown] vortioxetine 20 mg tablet 20 mg PO DAILY #30 tab 02/18/20 [Last Taken Unknown] Allergies/Adverse Reactions: Allergies Allergy/AdvReac Type Severity Reaction Status Date / Time latex Allergy Mild Hives Verified 07/23/19 10:04 - Planned Procedure Planned Procedure: R femur fracture Medication List Reviewed:: Yes Allergies Verified: Yes Medical History (Last Reviewed 04/28/20 @ 11:26 by Ray Bangura CRNA) Chronic right shoulder pain (Acute) Major depression (Chronic) Insomnia due to mental disorder (Chronic) Hip fracture, right Onset Date: 02/14/19 Avulsion fracture right greater trochanter Anxiety disorder Onset Date: Unknown Generalized Arthritis Onset Date: 01/2012 Right AC Complication of internal prosthetic device Onset Date: 11/05/12 Painful RTK Depression Onset Date: Unknown Diabetes Onset Date: 01/23/14 Type II uncontrolled GERD (gastroesophageal reflux disease) Onset Date: 01/24/04 HTN (hypertension) Onset Date: Unknown Hypercholesterolemia Onset Date: 01/23/14 Incontinence without sensory awareness Onset Date: 01/28/14 Insomnia Onset Date: Unknown Knee pain Onset Date: Unknown Decreased ROM Migraine Onset Date: Unknown Seizure disorder Onset Date: Unknown Stroke Onset Date: ~2000 W/left hemiparesis Bilateral breast cysts Onset Date: Unknown Eye exam normal Onset Date: 11/06/07 [facility] Kidney stone Onset Date: ~2010 Shoulder pain, right Onset Date: ~2011 Upper respiratory infection Onset Date: 01/23/14 Venous thromboembolism (VTE) Onset Date: 01/28/14 Surgical History (Last Reviewed 04/28/20 @ 11:27 by Ray Bangura CRNA) Ankle Repair Onset Date: 05/28/01 04/17/0029-[id number] left ankle. 05/28/01 [place]-removal of hardware Ectopic removal Onset Date: Unknown Epidural steroid injection Onset Date: 01/20/14 Lower back. H/O excision of ganglion cyst Onset Date: Unknown H/O laparoscopy Onset Date: 04/03/09 [facility] H/O tubal ligation Onset Date: Unknown History of bladder surgery Onset Date: Unknown Incontinence-interstim History of cataract surgery Onset Date: ~2015 bilateral History of cholecystectomy Onset Date: 09/06/07 Dr. 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 History of hysteroscopy Onset Date: 06/23/06 [place] History of knee replacement Onset Date: ~[address] De La Cruz History of removal of cyst Onset Date: Unknown Bilateral breasts History of total vaginal hysterectomy (TVH) Onset Date: 07/27/11 [place]-Post menopausal bleeding Hx of appendectomy Onset Date: Unknown Hx of colonoscopy Onset Date: 12/18/18 [place]-02/08/05-Benign colonic tissue consistent with mucosal polyp. 09/21/10-normal. 12/18/18 [facility]-tubular adenoma, poor prep. Recheck 5 yrs. Hx of cystoscopy Onset Date: 07/27/11 04/03/09, 07/27/11 [facility] (2008), FM w/TVH (2011) Hx of dilation and curettage 04/03/09 02/23/11 Done at [facility] for postmenopausal bleeding. Hx of salpingo-oophorectomy, bilateral Onset Date: 04/03/09 [facility] Family History (Last Reviewed 04/28/20 @ 11:27 by Ray Bangura CRNA) Brother Cancer Colon-dx age 65. thumb ca. Daughter Alive and well 1 daughter, Healthy Father , Age 50 Myocardial infarction Massive Mother Cancer Cervical Ca-dx age 60 COPD (chronic obstructive pulmonary disease) Son Alive and well 1 son- Healthy - Family Anesthesia History Family History:: no untoward family reactions to anesthesia - Airway/Neck/Teeth Denture Type: Full upper Neck Exam: limited range of motion Mallampatti Score: 3 Thyromental (T-M) distance: > 6 cm Mandibulo Hyoid distance: > 3 cm - Respiratory Respiratory Physical: lungs clear Smoking Status: Never smoker Sleep Apnea currently treated: No Sleep Apnea by current assessment: No - Cardiovascular Cardiac History: hypertension, hyperlipidemia Tolerate Activity: Poor Heart Sounds: S1 & S2, Regular - Gastrointestinal NPO since: MN - Anesthesia Assessment and Plan ASA Class: PS, III Anesthesia Type Plan: General LMA Planned difficult intubation/equipment available: No
[2020-04-28] MEDS ORDERED: ceFAZolin SODIUM 1 GM VIAL ONE (12:03)
--- NOTE | 2020-04-28 13:14 | PN ---
Subjective - Date and Time Seen Date: 04/28/20 Time: 13:09 Subjective Narrative: I have some leg pain. Objective Objective Narrative: 69-year-old female admitted for fracture of her right femur secondary to a fall was evaluated at bedside today was found to be afebrile and in no acute distress. Patient reported some pain in the involved lower extremity so we will give her usual pain meds. She is scheduled for the OR today to repair her fracture, once the procedure is over we will follow-up with her during the postop period. In the meantime we will increase her long-acting insulin for better control of her blood sugars. - Review of Systems Generalized/Overall Review: Reports: No Symptoms Reported EENTM: Reports: No Symptoms Reported Respiratory: Reports: No Symptoms Reported Cardiac: Reports: No Symptoms Reported Abdominal: Reports: No Symptoms Reported Genitourinary Symptoms: Reports: No Symptoms Reported Musculoskeletal Complaints: Reports: Joint Pain - Right lower extremity pain Neurological: Reports: No Symptoms Reported Skin: Reports: No Symptoms Reported Endocrine: Reports: No Symptoms Reported - Vitals Vitals: Last Vital Signs Temp 36.8 C 04/28/20 10:02 Pulse 66 04/28/20 10:02 Resp 16 04/28/20 10:02 BP 143/76 04/28/20 10:02 Pulse Ox 97 04/28/20 10:02 - Exam Constitutional: Present: Alert, Cooperative, Well developed, Well nourished, No distress ENT Exam: Present: normal ENT inspection, hearing grossly normal Neck: Present: non-tender, full range of motion, supple, normal inspection, trachea midline Breasts: Present: Exam deferred, Nontender Respiratory: Present: chest non-tender, lungs clear, normal breath sounds, no respiratory distress, no accessory muscle use Cardiovascular/Chest: Present: normal peripheral pulses, regular rate, rhythm, no chest tenderness, no edema, no gallop, no JVD, no murmur, no rub Abdomen: Present: Normal bowel sounds, soft, nontender, nondistended, no rebound tenderness, no hepatospenomegaly, no masses /Rectal: Present: Exam deferred Extremity: Present: normal range of motion, non-tender, normal inspection, no pedal edema, no calf tenderness, normal capillary refill, pelvis stable Skin Exam: Present: normal color, warm/dry, no cyanosis Lymphatic: Present: no adenopathy Neurologic: Present: normal cerebellar test, alert, normal mood/affect, 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 - Problems/Diagnosis (1) Femur fracture, right Problem: Acute Qualifiers: Encounter type: initial encounter Femur location: unspecified portion of femur Fracture type: closed Fracture morphology: unspecified fracture morphology Qualified Code(s): S72.91XA - Unspecified fracture of right femur, initial encounter for closed fracture (2) Diabetes mellitus Problem: Chronic Qualifiers: Diabetes mellitus type: type 2 (3) Hypertension Problem: Chronic Qualifiers: (4) CVA (cerebral vascular accident) Problem: Chronic Qualifiers: (5) Major depression Problem: Chronic Qualifiers: (6) 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 (7) Left hemiparesis Problem: Acute (8) Fall Problem: Acute
[2020-04-28] MEDS ORDERED: BUPIVACAINE HCL/EPINEPHRINE 50 ML VIAL ONE (13:28)
[2020-04-28] MEDS: MORPHINE SULFATE 4 MG/ML SYRG IV PRN (13:58)
[2020-04-28] MEDS: MUPIROCIN 22 APPL TUBE TP SCH ×2 (13:59→20:18)
--- NOTE | 2020-04-28 14:05 | PREOP NOTE ---
Preoperative Progress Note - Preoperative Changes Changes to Preop Condition?: No Changes
[2020-04-28] MEDS ORDERED: ONDANSETRON HCL/PF 2 MG/ML VIAL ONE (14:27)
[2020-04-28] MEDS ORDERED: PROPOFOL VIAL IV ONE (14:27)
[2020-04-28] MEDS ORDERED: fentaNYL CITRATE/PF 50 MCG/ML AMPUL ONE (14:27)
--- NOTE | 2020-04-28 16:37 | POSTOP NO ---
Date of Surgery: 04/28/20 Anesthesia: General Patient Tolerated the Procedure: Well Post Operative Diagnosis/Procedures: Doctorate Of Chiropractic: Mihai Phelps PA-C Post-operative Diagnosis: Displaced midshaft periprosthetic closed right femur fracture Finding: Above Procedure: Open reduction internal fixation of periprosthetic right femur fracture, intraoperative interpretation of x-rays Estimated Blood Loss: 100 mL Specimens: None Retained implants: [employer] 4.5 mm locking 10 hole plate with associated screws
[2020-04-28] MEDS ORDERED: ONDANSETRON HCL/PF 2 MG/ML VIAL IV PRN (16:38)
[2020-04-28] MEDS ORDERED: MAG HYDROX/ALUMINUM HYD/SIMETH 30 ML UDC PO PRN (16:38)
[2020-04-28] MEDS ORDERED: ACETAMINOPHEN 500 MG TABLET PO PRN (16:38)
[2020-04-28] MEDS ORDERED: MAGNESIUM HYDROXIDE 30 ML UDC PO PRN (16:38)
[2020-04-28] MEDS ORDERED: BUPIVACAINE HCL/EPINEPHRINE 50 ML VIAL IJ ONE (16:43)
--- NOTE | 2020-04-28 17:13 | ANES ---
Post Anesthesia Discharge - Transfer of Care Transfer of Care handoff given to nurse: Yes - Discharge from PACU Discharge from PACU when meets criteria: Yes
--- NOTE | 2020-04-28 17:18 | ANES ---
Post Anesthesia Assessment - Vital Signs Vitals: Last Vital Signs Temp 37.9 C 04/28/20 16:50 Pulse 75 04/28/20 17:10 Resp 12 04/28/20 17:10 BP 154/74 H 04/28/20 17:10 Pulse Ox 100 04/28/20 17:10 Airway Patency: Normal - Mental Status Level Of Consciousness: Awake - Pain Level Pain Score: 4 - N/V Assessment Nausea/Vomiting Presence: None Dehydration:: No
[2020-04-28] MEDS: amLODIPine BESYLATE 10 MG TABLET PO SCH (18:53)
[2020-04-28] MEDS: RAMIPRIL 2.5 MG CAPSULE PO SCH ×2 (18:53→20:17)
[2020-04-28] MEDS: SIMVASTATIN 10 MG TABLET PO SCH (20:20)
[2020-04-28] MEDS: CYCLOBENZAPRINE HCL 10 MG TABLET PO SCH (20:21)
[2020-04-28] MEDS: MIRTAZAPINE 15 MG TABLET PO SCH (20:23)
[2020-04-28] MEDS: INSULIN GLARGINE,HUM.REC.ANLOG 100 UNITS/ML VIAL SC SCH (20:25)
[2020-04-28] MEDS: HYDROcodone/ACETAMINOPHEN 1 EACH TABLET PO PRN (23:44)
[2020-04-29] MEDS: NORMAL SALINE 1,000 ML IV PRN (01:43)
[2020-04-29 06:37] LABS: Hematocrit 28.4 % (37.0-47.0); Hemoglobin 9.2 gm/dL (12.5-16.0); Mean Cell Volume 96.9 fl (78-100); Mean Corpuscular Hemoglobin 31.4 pg (27-31); Mean Corpuscular Hgb Conc 32.4 g/dl (32-36); Mean Platelet Volume 9.2 fl (8-12.5); Platelet Count 127 K/mm3 (150-450); Red Blood Count 2.93 M/mm3 (4.2-5.4); Red Cell Distribution Width 12.3 % (11.5-14.0); White Blood Count 15.4 K/mm3 (4.0-10.5)
[2020-04-29 06:50] LABS: Anion Gap 13.7 mmol/L (6.8-13.8); BUN/Creatinine Ratio 24.5 (9.0-21.6); Calcium * 7.7 mg/dL (7.9-10.9); Carbon Dioxide 19.6 mmol/L (24-32.6); Estimated Creat Clear 92.3; Potassium 3.3 mmol/L (3.4-4.6)
[2020-04-29] MEDS: HYDROcodone/ACETAMINOPHEN 1 EACH TABLET PO PRN (08:16)
[2020-04-29] MEDS: VORTIOXETINE HYDROBROMIDE 10 MG TABLET PO SCH (08:17)
[2020-04-29] MEDS: RAMIPRIL 2.5 MG CAPSULE PO SCH ×2 (08:17→20:51)
[2020-04-29] MEDS: MUPIROCIN 22 APPL TUBE TP SCH ×2 (08:17→20:50)
[2020-04-29] MEDS: TOPIRAMATE 50 MG TABLET PO SCH ×2 (08:18→20:52)
[2020-04-29] MEDS: rOPINIRole HCL 1 MG TABLET PO SCH ×2 (08:18→20:53)
[2020-04-29] MEDS: MULTIVITAMINS 1 TAB TAB.CHEW PO SCH (08:18)
[2020-04-29] MEDS: SENNOSIDES/DOCUSATE SODIUM 1 TAB TABLET PO SCH ×2 (08:18→20:52)
[2020-04-29] MEDS: TOLTERODINE TARTRATE 2 MG CAPSULE PO SCH (08:18)
[2020-04-29] MEDS: GABAPENTIN 300 MG CAPSULE PO SCH ×3 (08:18→16:22)
[2020-04-29] MEDS: RIVAROXABAN 20 MG TABLET PO SCH (08:18)
[2020-04-29] MEDS: DONEPEZIL HCL 5 MG TABLET PO SCH (08:19)
[2020-04-29] MEDS: METOPROLOL TARTRATE 25 MG TABLET PO SCH ×2 (08:19→20:54)
[2020-04-29] MEDS: DOCUSATE SODIUM 100 MG CAPSULE PO SCH ×2 (08:19→20:55)
[2020-04-29] MEDS: AZELASTINE HCL 0.05% EACHEYE SCH ×2 (08:20→20:55)
[2020-04-29] MEDS: CYANOCOBALAMIN 1,000 MCG TABLET PO SCH (08:20)
[2020-04-29] MEDS: metFORMIN HCL 500 MG TABLET PO SCH ×2 (08:20→16:22)
[2020-04-29] MEDS: ARIPiprazole 5 MG TABLET PO SCH (08:20)
[2020-04-29] MEDS: amLODIPine BESYLATE 10 MG TABLET PO SCH (08:20)
[2020-04-29] MEDS: CHOLESTYRAMINE/ASPARTAME 4 GM PACKET PO SCH ×2 (08:21→20:51)
[2020-04-29] MEDS: LIDOCAINE 1 PATCH ADH..PATCH TP SCH (08:21)
[2020-04-29] MEDS: NYSTATIN 15 APPL BTL TP SCH ×3 (08:21→16:22)
[2020-04-29] MEDS: PANTOPRAZOLE SODIUM 40 MG in NORMAL SALINE 100 ML IV SCH ×2 (08:43→20:29)
[2020-04-29] MEDS ORDERED: POTASSIUM CHLORIDE 20 MEQ TABLET.SA PO ONE (08:54)
[2020-04-29] MEDS ORDERED: ceFAZolin SODIUM 2 GM in DEXTROSE 5 % IN WATER 50 ML IV ONE ×2 (11:45)
--- NOTE | 2020-04-29 11:59 | PN ---
Subjective - Date and Time Seen Date: 04/29/20 Time: 11:46 Subjective Narrative: Patient is somnolent at the moment and does not respond to questions. Objective Objective Narrative: 69-year-old female postop day #1 status post open reduction internal fixation of periprosthetic right femur fracture was evaluated at bedside and was found to be afebrile and in no acute distress. However she does appear to be somnolent and less responsive to questions compared to the preop period. Patient tolerated the procedure without any major issues, no adverse events were reported. Postop hemoglobin has dropped down to 9 however with such major orthopedic surgery we expect this, will continue to monitor hemoglobin levels. She also had elevated WBCs which is most likely related to the operation but has a precaution a single dose of Ancef was ordered to cover for any developing infections. The patient's pain is adequately controlled and she appears comfortable for now, however will need to reevaluate her cognition and mental status later this afternoon. Intrahospital PT has been ordered by Ortho and patient is tolerating without any issues. We will follow further recommendations from Ortho and start working on discharge planning possibly for tomorrow. - Review of Systems Generalized/Overall Review: Reports: No Symptoms Reported EENTM: Reports: No Symptoms Reported Respiratory: Reports: No Symptoms Reported Cardiac: Reports: No Symptoms Reported Abdominal: Reports: No Symptoms Reported Genitourinary Symptoms: Reports: No Symptoms Reported Musculoskeletal Complaints: Reports: Joint Pain - Right lower extremity pain Neurological: Reports: No Symptoms Reported Skin: Reports: No Symptoms Reported Endocrine: Reports: No Symptoms Reported - Vitals Vitals: Last Vital Signs Temp 36.0 C 04/29/20 10:33 Pulse 74 04/29/20 10:33 Resp 16 04/29/20 10:33 BP 144/68 04/29/20 10:33 Pulse Ox 96 04/29/20 10:33 - Abnormal Lab Findings Abnormal Lab Findings: Abnormal Lab Results 04/29/20 04/29/20 Range/Units 06:00 06:00 WBC 15.4 H D (4.0-10.5) K/mm3 RBC 2.93 L (4.2-5.4) M/mm3 Hgb 9.2 L (12.5-16.0) gm/dL Hct 28.4 L (37.0-47.0) % MCH 31.4 H (27-31) pg Plt Count 127 L (150-450) K/mm3 Plasma Sodium 143 H (130-142) mmol/L Potassium 3.3 L (3.4-4.6) mmol/L Chloride 111 H (97-106) mmol/L Carbon Dioxide 19.6 L (24-32.6) mmol/L Est GFR (Non-Af Amer) 133 H D (60-130) mL/min BUN/Creatinine Ratio 24.5 H (9.0-21.6) Random Glucose 212 H (70-110) mg/dL Calcium 7.7 L (7.9-10.9) mg/dL - Exam Constitutional: Present: Alert, Cooperative, Well developed, Well nourished, No distress, Somnolent, Elderly ENT Exam: Present: normal ENT inspection, hearing grossly normal Neck: Present: non-tender, full range of motion, supple, normal inspection, trachea midline Breasts: Present: Exam deferred, Nontender Respiratory: Present: chest non-tender, lungs clear, normal breath sounds, no respiratory distress, no accessory muscle use Cardiovascular/Chest: Present: normal peripheral pulses, regular rate, rhythm, no chest tenderness, no edema, no gallop, no JVD, no murmur Abdomen: Present: Normal bowel sounds, soft, nontender, nondistended, no rebound tenderness, no hepatospenomegaly, no masses /Rectal: Present: Exam deferred Extremity: Present: no pedal edema, leg pain, other - Right lower extremity wrapped in clean surgical dressings. Skin Exam: Present: normal color, warm/dry, no cyanosis Lymphatic: Present: no adenopathy Neurologic: Present: alert, disoriented x 3 Appearance: Present: impaired insight, impaired recent memory, impaired remote memory Eye contact: Present: other Cauti Physician Documentation - Urinary Catheter Management 2-way Urethral Urethral Indwelling: Yes Date of Insertion: 04/26/20 Time of Insertion: 16:56 Assessment/Plan Plan Narrative: Patient appears to be more somnolent than before the surgery, this could be lingering effect of the anesthesia or pain medications. Either way we will monitor to see if she recuperates to her baseline if not, we will need to do further evaluation possibly with a head CT. Right now she maintained stable vitals and is sitting up in her chair but she is not as responsive as before and not very reactive to verbal or tactile stimuli. Again, we will reevaluate the patient later this afternoon to determine how to proceed. 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
[2020-04-29] MEDS ORDERED: traMADol HCL 50 MG TABLET PO SCH (14:45)
[2020-04-29] MEDS ORDERED: traMADol HCL 50 MG TABLET ONE (16:17)
[2020-04-29] MEDS: traMADol HCL 50 MG TABLET PO SCH ×2 (16:22→21:01)
--- NOTE | 2020-04-29 18:47 | PN ---
Subjective - Date and Time Seen Date: 04/29/20 Time: 07:45 Subjective Narrative: Subjective: Reports mild pain but improved from yesterday. she is resting in bed at this time. Pain is well-controlled. She denies any concerns Physical exam: Alert Right lower extremity: Palpable dorsalis pedis pulse. Sensation grossly intact to light touch. Dressings clean and dry. Able to flex and extend ankle and toes. No excessive drainage. Calf and thigh are soft and nontender. Assessment: Postop day 1 status post open reduction internal fixation of right femur fracture. Plan: Continue with physical and occupational therapy nonweightbearing. Continue with anticoagulation. 24 hours postoperative prophylactic antibiotics. Pain control with goal to rely on oral medications. Continue bowel regimen. Discharge planning. She will need to continue be nonweightbearing however this is her baseline. She is okay for transfers with a Hernandez or transfer board. Continue with compression. Ice to the thigh. Keep the wounds dry. Follow-up in 2 weeks with x-rays. Objective - Vitals Vitals: Last Vital Signs Temp 36.2 C 04/29/20 18:13 Pulse 95 04/29/20 18:13 Resp 24 H 04/29/20 18:13 BP 143/79 04/29/20 18:13 Pulse Ox 97 04/29/20 18:13 - Abnormal Lab Findings Abnormal Lab Findings: Abnormal Lab Results 04/29/20 04/29/20 Range/Units 06:00 06:00 WBC 15.4 H D (4.0-10.5) K/mm3 RBC 2.93 L (4.2-5.4) M/mm3 Hgb 9.2 L (12.5-16.0) gm/dL Hct 28.4 L (37.0-47.0) % MCH 31.4 H (27-31) pg Plt Count 127 L (150-450) K/mm3 Plasma Sodium 143 H (130-142) mmol/L Potassium 3.3 L (3.4-4.6) mmol/L Chloride 111 H (97-106) mmol/L Carbon Dioxide 19.6 L (24-32.6) mmol/L Est GFR (Non-Af Amer) 133 H D (60-130) mL/min BUN/Creatinine Ratio 24.5 H (9.0-21.6) Random Glucose 212 H (70-110) mg/dL Calcium 7.7 L (7.9-10.9) mg/dL Cauti Physician Documentation - Urinary Catheter Management 2-way Urethral Urethral Indwelling: Yes Date of Insertion: 04/26/20 Time of Insertion: 16:56 Assessment/Plan - Problems/Diagnosis (1) Femur fracture, right Problem: Acute Qualifiers: Encounter type: initial encounter Femur location: unspecified portion of femur Fracture type: closed Fracture morphology: unspecified fracture morphology Qualified Code(s): S72.91XA - Unspecified fracture of right femur, initial encounter for closed fracture
--- NOTE | 2020-04-29 18:52 | OR ---
Operative Report - Dictated Report Narrative: Date: April 28, 2020 SURGEON: Mathew Abbott MD. GEAR STRAIGHTENER: Mihai Phelps PA-C (provided a set of skilled educated hands and assisted with prepping, draping, positioning, retraction, manipulation, irrigation, placement of instruments, placement of implants, closure of the wounds and application of dressings, all of which could not be performed by the available surgical crew). PREOPERATIVE DIAGNOSES: Closed oblique displaced periprosthetic right midshaft femur fracture ANESTHESIA: General plus local COMPLICATIONS: None. DRAINS: None. SPECIMENS: None. RETAINED IMPLANTS: [employer] 4.5 mm 10-hole locking distal femoral plate. TOURNIQUET TIME: None PROCEDURES PERFORMED: 1. Open reduction internal fixation right oblique periprosthetic femur fracture 2. Intraoperative interpretation of x-rays. ESTIMATED BLOOD LOSS: 100 mL l. INDICATIONS FOR PROCEDURE: Mrs. Arellano is a 69-year-old female who resides in a group home who fell out of bed unwitnessed. She otherwise is not on ambulatory and uses a assistive device for transfers. She is brought to the hospital and found to have a displaced oblique midshaft periprosthetic right femur fracture around a total knee arthroplasty. She was admitted to the floor for preoperative optimization. Once the appropriate implants were available the plan to proceed with surgical intervention was discussed and proceeded with. Once it was felt that he was medically sound for surgery, the risks, benefits, and alternatives were discussed including the risk of , blood clot, bleeding, infection, nerve/tendon/blood vessel injury, nonunion, malunion, failure of implants, prominent implants, painful implants, post-traumatic arthrosis, persistent pain, stiffness, prolonged nonweightbearing and need for additional procedures and he wished to proceed. Consent was obtained. DESCRIPTION OF PROCEDURE: After marking the correct extremity, the patient was taken to the operating room, timeout was performed. IV antibiotics of Ancef was administered prior to procedure. A bump was placed in the right buttock and the right leg was prepped and draped in a standard sterile fashion C arm was utilized in order to visualize the fracture and emile out the bony landmarks. A 10 hole plate was selected in order to provide for adequate fixation proximally distally. A longitudinal incision was made along the lateral distal femur and the IT band was split in order to allow for percutaneous placement of the plate along the lateral aspect of the femur. A proximal incision was made and the plate was encountered after splitting the IT band proximally in order to preliminary fixate the plate to the bone. Longitudinal traction with internal and external rotation as well as flexion of the knee allowed for reduction of the fracture to overall appropriate alignment on both the AP and lateral views. Distal fixation was obtained with a series of locking and nonlocking screws as well as proximally with a series of locking and nonlocking screws. This fracture was long oblique from medial distal to proximal lateral around her total knee arthroplasty. We felt that we obtained adequate fixation both proximally and distally for her level activity and placed the knee through range of motion without any signs of fracture or instability. Once is felt that her fracture was adequately stabilized, the wounds were thoroughly irrigated. The fascia was closed with 0 Vicryl the subcutaneous with 3-0 Vicryl and the skin with humberto. 0.5% Marcaine without epinephrine was infused around the skin edges. Xeroform, 4 x 4's, soft roll and a full leg Sunny were applied. All sponge, needle and instrument counts were correct prior to closing the wounds. Final images were obtained with the C-arm.
[2020-04-29] MEDS: CYCLOBENZAPRINE HCL 10 MG TABLET PO SCH (20:51)
[2020-04-29] MEDS: MIRTAZAPINE 15 MG TABLET PO SCH (20:53)
[2020-04-29] MEDS: SIMVASTATIN 10 MG TABLET PO SCH (21:01)
[2020-04-29] MEDS: INSULIN GLARGINE,HUM.REC.ANLOG 100 UNITS/ML VIAL SC SCH (21:02)
[2020-04-30] MEDS: traMADol HCL 50 MG TABLET PO SCH ×3 (00:41→09:02)
[2020-04-30 06:20] LABS: Hematocrit 25.5 % (37.0-47.0); Hemoglobin 8.3 gm/dL (12.5-16.0); Mean Cell Volume 97.3 fl (78-100); Mean Corpuscular Hemoglobin 31.7 pg (27-31); Mean Corpuscular Hgb Conc 32.5 g/dl (32-36); Mean Platelet Volume 8.9 fl (8-12.5); Neutrophil # 9.4 K/mm3 (1.3-6.0); Platelet Count 132 K/mm3 (150-450); Red Blood Count 2.62 M/mm3 (4.2-5.4); Red Cell Distribution Width 12.4 % (11.5-14.0); White Blood Count 12.5 K/mm3 (4.0-10.5)
[2020-04-30 06:33] LABS: Albumin * 2.2 gm/dl (3.4-5.0); Anion Gap 11.3 mmol/L (6.8-13.8); BUN/Creatinine Ratio 28.1 (9.0-21.6); Bilirubin, Total 0.7 mg/dL (0.0-1.1); Ca. Corrected For Albumin 9.2 mg/dL (8.4-10.2); Calcium * 8.1 mg/dL (7.9-10.9); Carbon Dioxide 21.2 mmol/L (24-32.6); Potassium 3.5 mmol/L (3.4-4.6); Total Protein 5.7 gm/dL (6.2-8.2)
[2020-04-30] MEDS: CHOLESTYRAMINE/ASPARTAME 4 GM PACKET PO SCH (08:37)
[2020-04-30] MEDS: TOPIRAMATE 50 MG TABLET PO SCH (08:38)
[2020-04-30] MEDS: MUPIROCIN 22 APPL TUBE TP SCH (08:38)
[2020-04-30] MEDS: RIVAROXABAN 20 MG TABLET PO SCH (08:38)
[2020-04-30] MEDS: RAMIPRIL 2.5 MG CAPSULE PO SCH (08:38)
[2020-04-30] MEDS: GABAPENTIN 300 MG CAPSULE PO SCH (08:39)
[2020-04-30] MEDS: amLODIPine BESYLATE 10 MG TABLET PO SCH (08:44)
[2020-04-30] MEDS: VORTIOXETINE HYDROBROMIDE 10 MG TABLET PO SCH (08:44)
[2020-04-30] MEDS: SENNOSIDES/DOCUSATE SODIUM 1 TAB TABLET PO SCH (08:44)
[2020-04-30] MEDS: DONEPEZIL HCL 5 MG TABLET PO SCH (08:45)
[2020-04-30] MEDS: CYANOCOBALAMIN 1,000 MCG TABLET PO SCH (08:45)
[2020-04-30] MEDS: metFORMIN HCL 500 MG TABLET PO SCH (08:45)
[2020-04-30] MEDS: TOLTERODINE TARTRATE 2 MG CAPSULE PO SCH (08:45)
[2020-04-30] MEDS: DOCUSATE SODIUM 100 MG CAPSULE PO SCH (08:45)
[2020-04-30] MEDS: ARIPiprazole 5 MG TABLET PO SCH (08:46)
[2020-04-30] MEDS: METOPROLOL TARTRATE 25 MG TABLET PO SCH (08:46)
[2020-04-30] MEDS: MULTIVITAMINS 1 TAB TAB.CHEW PO SCH (08:46)
[2020-04-30] MEDS: rOPINIRole HCL 1 MG TABLET PO SCH (08:47)
[2020-04-30] MEDS: PANTOPRAZOLE SODIUM 40 MG in NORMAL SALINE 100 ML IV SCH (08:48)
[2020-04-30] MEDS: LIDOCAINE 1 PATCH ADH..PATCH TP SCH (08:58)
[2020-04-30] MEDS: AZELASTINE HCL 0.05% EACHEYE SCH (08:58)
[2020-04-30] MEDS: NYSTATIN 15 APPL BTL TP SCH (08:58)
--- NOTE | 2020-04-30 09:55 | DS ---
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 Patient underwent an uneventful procedure, no adverse events were reported. Her pain has been managed with oral medications which she is tolerating without any issues although yesterday she appeared more somnolent than usual so pain meds were switched to something else. Since then nothing new reported. Patient has been receiving in hospital PT to start her rehab since her surgery and as ordered by Ortho. She has been cleared for discharge by the orthopedic team and will be returning to the [facility] later this morning. We will discharge patient with additional days of oral pain meds and oral anticoagulants as recommended by Ortho. Procedures Performed: see notes below List Procedures: Open reduction internal fixation right oblique periprosthetic femur fracture Results and Findings: Lab Pending Results 04/26/20 16:20: WBC 9.8, RBC 4.63, Hgb 14.5, Hct 43.9, MCV 94.8, MCH 31.3 H, MCHC 33.0, RDW 12.1, Plt Count 166, MPV 8.8, Immature Gran % (Auto) 0.20, Immature Gran # (Auto) 0.02, Neutrophils % 65.7, Lymphocytes % 24.8, Monocytes % 4.9, Eosinophils % 4.0 H, Basophils % 0.4, Nucleated RBC % 0.0, Neutrophils # 6.4 H, Lymphocytes # 2.42, Monocytes # 0.5, Eosinophils # 0.4, Absolute Basophils 0.0 04/26/20 16:20: Sodium 143 H, Plasma Sodium 145 H, Potassium 4.0, Chloride 107 H, Carbon Dioxide 26.1, Anion Gap 13.9 H, BUN 13, Creatinine 0.97, Est GFR (Non- Af Amer) 60 D, BUN/Creatinine Ratio 13.4, Random Glucose 195 H, Calcium 8.9, Calcium Adj for Albumin 8.9, Total Bilirubin 0.3, AST 24, ALT 27, Alkaline Phosphatase 101, Total Protein 7.2, Albumin 3.6 04/26/20 16:20: PT 10.4, INR (Anticoag Therapy) 1.05, PTT ([place]) 24.0 04/27/20 13:45: SARS-CoV-2 (PCR) Not detected 04/29/20 06:00: WBC 15.4 H D, RBC 2.93 L, Hgb 9.2 L, Hct 28.4 L, MCV 96.9, MCH 31.4 H, MCHC 32.4, RDW 12.3, Plt Count 127 L, MPV 9.2 04/29/20 06:00: Sodium 141, Plasma Sodium 143 H, Potassium 3.3 L, Chloride 111 H, Carbon Dioxide 19.6 L, Anion Gap 13.7, BUN 12, Creatinine 0.49, Est GFR (Non- Af Amer) 133 H D, BUN/Creatinine Ratio 24.5 H, Random Glucose 212 H, Calcium 7.7 L 04/30/20 06:00: WBC 12.5 H, RBC 2.62 L, Hgb 8.3 L, Hct 25.5 L, MCV 97.3, MCH 31.7 H, MCHC 32.5, RDW 12.4, Plt Count 132 L, MPV 8.9, Immature Gran % (Auto) 0.50 H, Immature Gran # (Auto) 0.06 H, Neutrophils % 75.0, Lymphocytes % 13.0 L, Monocytes % 10.8 H, Eosinophils % 0.5, Basophils % 0.2, Nucleated RBC % 0.0, Neutrophils # 9.4 H, Lymphocytes # 1.62, Monocytes # 1.4 H, Eosinophils # 0.1, Absolute Basophils 0.0 04/30/20 06:00: Sodium 138, Plasma Sodium 141, Potassium 3.5, Chloride 109 H, Carbon Dioxide 21.2 L, Anion Gap 11.3, BUN 16, Creatinine 0.57, Est GFR (Non-Af Amer) 111, BUN/Creatinine Ratio 28.1 H, Random Glucose 266 H, Calcium 8.1, Calcium Adj for Albumin 9.2, Total Bilirubin 0.7, AST 13, ALT 16 L, Alkaline Phosphatase 54, Total Protein 5.7 L, Albumin 2.2 L Discharge Location: [facility] Disposition: SNF Condition: Stable Face to Face Encounter completed per [facility] Guidelines: No Level of Care: SNF Discharge Activity: Non-Weight bearing Discharge Diet: General/regular food Assisted Therapy: Physical Therapy Additional Patient Instructions (free text): Back to [facility] for therapies. Please call and fax discharge information. She will need to continue be nonweightbearing however this is her baseline. She is okay for transfers with a Hernandez or transfer board. Continue with compression. Ice to the thigh. Keep the wounds dry. Follow-up in 2 weeks with x-rays. Prescriptions (Any new or edited meds): traMADol HCL [Ultram] 50 mg PO Q4H #60 tab Transmission Status: Received by [facility] Rivaroxaban [Xarelto] 10 mg PO DAILY #40 tab Transmission Status: Pending to [facility] Complete Home Medications List: Complete Home Medication List: blood sugar diagnostic See Dose Instructions .ROUTE .MEDSUPPLY #100 ea 02/28/18 lancets See Dose Instructions .ROUTE .MEDSUPPLY #200 ea 02/28/18 polyethylene glycol 3350 17 gram/dose oral powder 17 g PO DAILY PRN #510 g 09/20/18 ramipril 10 mg capsule 10 mg PO BID #180 cap 09/20/18 pen needle,diabetic dual safty 30 gauge x 3/16" See Dose Instructions .ROUTE .MEDSUPPLY #200 ea 11/13/18 lidocaine 5 % topical patch 1 patch TP DAILY #30 ea 11/29/18 clopidogrel 75 mg tablet 75 mg PO DAILY #90 tab 11/30/18 gabapentin 300 mg capsule 300 mg PO TID #270 cap 11/30/18 metoprolol tartrate 25 mg tablet 25 mg PO BID #180 tab 11/30/18 azelastine 0.05 % eye drops 1 drp OP BID 12/04/18 estradiol 1 g VG 2XW 12/04/18 topiramate 100 mg tablet 100 mg PO BID 12/04/18 metformin 500 mg tablet 500 mg PO BIDWM #180 tab 12/10/18 Cyclosporine [Restasis] 1 drp OPHTHALMIC (EYE) BID 12/18/18 insulin syringe,safetyneedle 1 mL 30 gauge x 1/2" See Dose Instructions .ROUTE .MEDSUPPLY #100 ea 12/31/18 sofya See Dose Instructions .ROUTE .MEDSUPPLY #1 ea 02/08/19 Acetaminophen 650 mg PO Q6H PRN 02/27/19 Multivit,Tx with Iron,Minerals [Thera-M] 1 ea PO DAILY 02/27/19 Onabotulinumtoxina [Botox] 200 units IM Q90D 02/27/19 Ropinirole HCl [Requip Xl] 2 mg PO HS 02/27/19 Tolterodine Tartrate [Tolterodine Tartrate ER] 2 mg PO DAILY 02/27/19 Amlodipine Besylate 10 mg PO DAILY #90 tab 03/05/19 donepezil 5 mg tablet 5 mg PO DAILY 03/26/19 sennosides 8.6 mg-docusate sodium 50 mg tablet 1 tab PO BID 03/26/19 simvastatin 10 mg tablet 10 mg PO HS tab 03/26/19 loperamide 2 mg capsule 2 mg PO Q4H PRN #30 cap 04/03/19 cholestyramine (with sugar) 4 gram oral powder 4 g PO BID 04/19/19 erenumab-aooe 140 mg/mL subcutaneous auto-injector 140 mg SUBCUT QMONTH 04/19/19 cyanocobalamin (vitamin B-12) 1,000 mcg capsule 1,000 mcg PO DAILY 06/03/19 acetaminophen 500 mg capsule 500 mg PO QID 07/23/19 nystatin 100,000 unit/gram topical powder 1 applic TP TID 07/23/19 cyclobenzaprine 5 mg tablet 5 mg PO BID PRN #30 tab 09/16/19 cyclobenzaprine 5 mg tablet 5 mg PO HS #30 tab 09/16/19 tramadol 50 mg tablet 50 mg PO HS #30 tab 09/16/19 tramadol 50 mg tablet 50 mg PO TID PRN #30 tab 09/16/19 insulin detemir U-100 100 unit/mL subcutaneous solution 10 unit SUBCUT HS #10 ml 12/04/19 ceftriaxone 1 gram solution for injection 1 g IM DAILY #5 ea 12/26/19 aripiprazole 5 mg tablet 5 mg PO DAILY #30 tab 02/18/20 mirtazapine 15 mg tablet 15 mg PO HS #30 tab 02/18/20 vortioxetine 20 mg tablet 20 mg PO DAILY #30 tab 02/18/20 Rivaroxaban [Xarelto] 10 mg PO DAILY #40 tab 04/30/20 traMADol HCL [Ultram] 50 mg PO Q4H #60 tab 04/30/20 Forms: Patient Portal Registration
[2020-04-30 11:21] VITALS: BP 140/72
== END 2020-04-30 10:30 | DRG 480 ==
LOC: ER 15:43 → MS 17:32
PROVIDERS: ADMIT Family Medicine; ATTEND Family Medicine
DX: I69.959 Hemiplegia and hemiparesis following unspecified cerebrovascular disease affecting unspecified side; S72.301A Unspecified fracture of shaft of right femur, initial encounter for closed fracture; W06.XXXA Fall from bed, initial encounter; M97.11XA Periprosthetic fracture around internal prosthetic right knee joint, initial encounter; E78.5 Hyperlipidemia, unspecified; F41.8 Other specified anxiety disorders; E11.9 Type 2 diabetes mellitus without complications; I10 Essential (primary) hypertension; D62 Acute posthemorrhagic anemia; F03.90 Unspecified dementia, unspecified severity, without behavioral disturbance, psychotic disturbance, mood disturbance, and anxiety; G47.00 Insomnia, unspecified